=== PATIENT | female | born 1955 | race Two or more races ===

== ENCOUNTER 2024-08-24 17:26 | Inpatient (IN) | payer OTHER, MEDICAID ==
[~2024-08-24] VITALS: Ht 172.7 cm; Wt 67.5 kg
--- NOTE | 2024-08-24 17:34 | ED.PDOC ---
History of Present Illness HPI Comments 59 year old female brought in by EMS with a chief complaint of chronic seizure- like activity. Per EMS, patient has been experiencing seizure like activity and is anxious. Patient is anxious, crying and in distress, unable to obtain story from patient due to her anxiety. PMHx of HTN and anxiety. No other symptoms or modifying factors present at this time. 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 History Family History Family History: Reviewed,noncontributory to illness, No family hx of Cancer, No family hx of DM, No family hx of Heart breana, No family hx of HTN, No family hx ofKidney breana, No family hx of Liver breana, No family hx of Lung breana, No family hx of Stroke Social History Smoker: Non-Smoker Alcohol: Denies ETOH Use Drugs: Denies Drug Use Lives In: Home Psychiatric: reports: anxiety Unable to Obtain due to: Altered Mental Status Physical Exam General Appearance: Moderate Distress, Normal, Other (anxious, tearful ) HEENT: Normal ENT Inspection, Pharynx Normal, TMs Normal Neck: Full Range of Motion, Non-Tender, Normal, Normal Inspection Respiratory: Chest Non-Tender, Lungs Clear, No Accessory Muscle Use, No Respiratory Distress, Normal Breath Sounds Cardiovascular: No Edema, No JVD, No Murmur, No Gallop, Normal Peripheral Pulses, Regular Rate/Rhythm Breast Exam: Deferred Gastrointestinal: No Organomegaly, Non Tender, No Pulsatile Mass, Normal Bowel Sounds, Soft Genitalia: Deferred Pelvic: Deferred Rectal: Deferred Extremities: No calf tenderness, Normal capillary refill, Normal inspection, Normal range of motion, Non-tender, No pedal edema Musculoskeletal : Apperance: Normal Neurologic: Alert, tableau lead II-XII nml as Tested, No Motor Deficits, No Sensory Deficits, Other (anxious) Cerebellar Function: Normal Reflexes: Normal Skin: Dry, Normal Color, Warm Lymphatic: No Adenopathy Was a procedure done? Was a procedure done?: No Differential Dx Considerations may include: Anxiety, seizure X-Ray, Labs, Meds, VS Vital Signs Date Time Temp Pulse Resp B/P (MAP) Pulse Ox O2 Delivery O2 Flow Rate FiO2 08/24/24 21:19 92 16 159/81 100 100 08/24/24 21:01 159/81 08/24/24 20:40 92 16 159/81 (107) 92 100 08/24/24 19:49 79 33 100 Nasal Cannula* 4 36 08/24/24 19:47 98.9 79 33 158/103 (121) 100 98.9 08/24/24 18:12 99.9 92 24 192/118 (142) 97 08/24/24 17:26 77 Lab Test 08/24/24 18:01 Range/Units White Blood Count 4.4 4.4-10.8 10^3/uL Red Blood Count 4.19 4.0-5.20 10^6/uL Hemoglobin 14.3 12.2-16.2 g/dL Hematocrit 41.8 36.0-46.0 % Mean Corpuscular Volume 99.7 80.0-100.0 fL Mean Corpuscular Hemoglobin 34.1 H 28.0-32.0 pg Mean Corpuscular Hemoglobin Concent 34.2 32.0-36.0 g/dL Red Cell Distribution Width 13.0 11.8-14.3 % Platelet Count 168 140-450 10^3/uL Mean Platelet Volume 9.5 6.9-10.8 fL Neutrophils (%) (Auto) 56.4 37.0-80.0 % Lymphocytes (%) (Auto) 33.0 10.0-50.0 % Monocytes (%) (Auto) 8.7 0.0-12.0 % Eosinophils (%) (Auto) 1.4 0.0-7.0 % Basophils (%) (Auto) 0.5 0.0-2.0 % Neutrophils # (Auto) 2.5 1.6-8.6 10 ^3/uL Lymphocytes # (Auto) 1.4 0.4-5.4 10 ^3/uL Monocytes # (Auto) 0.4 0-1.3 10 ^3/uL Eosinophils # (Auto) 0.1 0-0.8 10 ^3/uL Basophils # (Auto) 0 0-0.2 10 ^3/uL Nucleated Red Blood Cells 0.0 % D-Dimer, Quantitative 0.74 H 0.0-0.49 mg/L FEU Sodium Level 145 136-145 mmol/L Potassium Level 3.8 3.5-5.1 mmol/L Chloride Level 111 H 98-107 mmol/L Carbon Dioxide Level 24 20-31 mmol/L Anion Gap 10 5-15 Blood Urea Nitrogen 10 9-23 mg/dL Creatinine 0.61 0.550-1.02 mg/dL Glomerular Filtration Rate Calc 96 >90 mL/min BUN/Creatinine Ratio 16.4 10.0-20.0 Serum Glucose 124 H 74-106 mg/dL Calcium Level 10.9 H 8.7-10.4 mg/dL Total Bilirubin 0.5 0.2-1.0 mg/dL Aspartate Amino Transferase (AST) 18 13-40 U/L Alanine Aminotransferase (ALT) 29 7-40 U/L Alkaline Phosphatase 98 46-116 U/L Total Protein 7.0 5.7-8.2 g/dL Albumin 4.6 3.2-4.8 g/dL Plasma/Serum Blood Alcohol 5.1 <10 mg/dL Current Medications Medications (Trade) Dose Ordered Sig/Jeanne Route Start Time Stop Time Status Last Admin Midazolam HCl (Versed Injection) 5 mg ONCE ONCE IV 08/24/24 18:45 08/24/24 18:46 DC 08/24/24 19:08 Propofol 100 ml @ 2.46 mls/hr Q24H IV 08/24/24 20:45 08/24/24 21:01 X-Ray, Labs, Meds, VS Comment This 59-year-old female was brought in secondary to seizure-like activity. However, the patient endorses feeling anxious with numbness tingling to her lips and fingers. I have managed to have the patient was a full questions with deep inspiration and relaxation techniques. She was sent home with the she prefers to speak Nigerien versus Mauritanian. However, shortly after I left the patient was bedside, she began becoming tremulous, tearful, saying please and calling out for what seems to be family members. Patient was given Haldol IM. Patient was signed out to the oncoming physician for final disposition Time of 1ST Reevaluation: 17:56 Reevaluation 1ST: Unchanged Patient Education/Counseling: Diagnosis, Treatment, Prognosis Family Education/Counseling: No Family Present Departure 1 Departure Time of Disposition: 21:46 (Patient with worsening altered mental status and intractable pain. Patient was becoming delirious. Patient was intubated central line placed emergently fluids fluids given the patient will be admitted for further workup.) Impression: Primary Impression: Acute metabolic encephalopathy Additional Impressions: Lower back pain Qualified Codes: M54.42 - Lumbago with sciatica, left side; M54.41 - Lumbago with sciatica, right side Generalized weakness Disposition: 09 ADMITTED INPATIENT Admit to: ICU Condition: Critical Critical Care Note Critical Care Time?: Yes Critical care comment: Acute metabolic encephalopathy Authorized and Performed by: Morales Scruggs MD Total critical care time: Approximately 39 minutes Due to a high probability of clinically significant, life threatening deterioration, the patient required my highest level of preparedness to intervene emergently and I personally spent this critical care time directly and personally managing the patient. This critical care time included obtaining a history; examining the patient; pulse oximetry; ordering and review of studies; arranging urgent treatment with development of a management plan; evaluation of patient's response to treatment; frequent reassessment; and, discussions with other providers. This critical care time was performed to assess and manage the high probability of imminent, life-threatening deterioration that could result in multi-organ failure. It was exclusive of separately billable procedures and treating other patients and teaching time. Please see my other sections and the rest of the note for further information on patient assessment and treatment. Stability Stability form required: No Heart Score Heart Score: Heart Score Response (Comments) Value History N/A 0 EKG N/A 0 Age N/A 0 Risk Factors N/A 0 Troponin N/A 0 Total 0 I personally scribed for ALEC HERRMANN MD ([email or web address]) on 08/24/24 at 17:34. Electronically submitted by Ruby Rivero ([email or web address]). ALEC HERRMANN MD Aug 24, 2024 17:34 MORALES SCRUGGS MD Aug 24, 2024 21:47
[2024-08-24] MEDS: HALOPERIDOL LACTATE 5 MG/ML INJ VIAL IM ONE (17:57)
[2024-08-24 18:46] LABS: Basophils # (auto) 0 10 ^3/uL (0-0.2); Basophils % (auto) 0.5 % (0.0-2.0); Eosinophils # (auto) 0.1 10 ^3/uL (0-0.8); Eosinophils % (auto) 1.4 % (0.0-7.0); Monocytes # (auto) 0.4 10 ^3/uL (0-1.3); Neutrophils # (auto) 2.5 10 ^3/uL (1.6-8.6); White Blood Cell 4.4 10^3/uL (4.4-10.8)
[2024-08-24 18:52] LABS: Alanine Aminotransferase 29 U/L (7-40); Albumin 4.6 g/dL (3.2-4.8); Alkaline Phosphatase 98 U/L (46-116); Anion Gap 10 (5-15); Aspartate Aminotransferase 18 U/L (13-40); BUN/Creatinine Ratio 16.4 (10.0-20.0); Bilirubin, Total 0.5 mg/dL (0.2-1.0); Blood Urea Nitrogen 10 mg/dL (9-23); Carbon Dioxide 24 mmol/L (20-31); Potassium 3.8 mmol/L (3.5-5.1); Sodium 145 mmol/L (136-145)
[2024-08-24 19:07] LABS: Calcium 10.9 mg/dL (8.7-10.4); Chloride 111 mmol/L (98-107); Glucose 124 mg/dL (74-106)
[2024-08-24] MEDS: MIDAZOLAM HCL 5 MG/ML-1ML VIAL IV ONE (19:08)
--- NOTE | 2024-08-24 19:17 | ECG ---
[facility] Test Date: 2024-08-24 Test Time: 17:20:53 Pat Name: TANIA SAMS Department: ED Room: Gender: F Roguer: BK : 1955 Requested By: ALEC HERRMANN Order Number: [id number] Reading MD: Measurements Intervals [place] Rate: 77 P: 1 WY: 143 QRS: -16 QRSD: 87 T: 30 QT: 381 QTc: 432 Interpretive Statements Sinus rhythm Borderline left axis deviation Please click the below link to view image of tracing.
[2024-08-24 19:31] LABS: Hematocrit 41.8 % (36.0-46.0); Hemoglobin 14.3 g/dL (12.2-16.2); Lymphocytes # (auto) 1.4 10 ^3/uL (0.4-5.4); Mean Corpuscular Hemoglobin 34.1 pg (28.0-32.0); Mean Corpuscular Hgb Conc. 34.2 g/dL (32.0-36.0); Mean Corpuscular Volume 99.7 fL (80.0-100.0); Monocytes % (auto) 8.7 % (0.0-12.0); Neutrophils % (auto) 56.4 % (37.0-80.0); Platelet Count (auto) 168 10^3/uL (140-450); Red Blood Cells 4.19 10^6/uL (4.0-5.20)
[2024-08-24 19:49] VITALS: PULSE 79; RESP 33; O2SAT 100
--- NOTE | 2024-08-24 20:04 | DVH ---
CHEST RADIOGRAPH Indication: ams Technique: Single frontal view of the chest was obtained Comparison: None FINDINGS: Lines and Tubes: None Lungs: No focal consolidation. Pleura: No effusion. No pneumothorax. Cardiomediastinal contours: Unremarkable Bones: No acute osseous abnormality. IMPRESSION: No acute cardiopulmonary disease.
[2024-08-24] MEDS: ETOMIDATE (2MG/ML) 20ML VIAL IV ONE (20:34)
[2024-08-24] MEDS: ROCURONIUM 10MG/ML 10ML VIAL IV ONE (20:35)
[2024-08-24 20:40] VITALS: BP 159/81; PULSE 92; RESP 16; O2SAT 92
[2024-08-24] MEDS: PROPOFOL 100 ML IV ONE (21:01)
[2024-08-24] MEDS: PROPOFOL 100 ML IV SCH (21:01)
[2024-08-24 21:19] VITALS: BP 159/81; PULSE 92; RESP 16; O2SAT 100
--- NOTE | 2024-08-24 21:55 | DVH ---
CHEST RADIOGRAPH Indication: CENTRAL LINE PLACEMENT/ OGT PLACEMENT Technique: Single frontal view of the chest was obtained Comparison: XY CHEST PORTABLE on DOS: 08/24/24 FINDINGS: Lines and Tubes: Enteric tube is in satisfactory position. Left IJ approach central venous catheter t erminating of the midline lower thorax. Endotracheal tube terminates about 1.3 cm above the adonis. Lungs: Interval development of complete opacification of the left hemithorax with mediastinal shift t o the left. Slight image rotation to the right. No pneumothorax. Cardiomediastinal contours: Unremarkable Bones: No acute osseous abnormality. IMPRESSION: Left IJ approach central venous catheter terminates over the lower midline thorax with the heart is n ot definitely visualized due to mediastinal shift to the left and complete opacification of the left hemithorax. Endotracheal tube terminates about 1.3 cm above the adonis. Consider pulling back about 1-2 cm for mo re optimal positioning. Enteric tube is in satisfactory position. Interval development of complete opacification of the left hemithorax with mediastinal shift to the l eft which may be from atelectasis with underlying pleural effusion not completely excluded.
--- NOTE | 2024-08-24 22:09 | DVHNC2 ---
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) Indication: Hypotension, Volume resuscitation, Inability to obtain IV Room prepared for procedure: Yes Dist[employer] Miller Helper performed hand hygien: Yes Maximal sterile barrier precau: Mask/Eye shield, Sterile gown, Cap, Sterlie gloves, Large sterlie drape Skin Preparation: Chlorhexidine gluconate Skin preparation completely dr: Yes Insertion site: Left, Internal jugular, Line secured Central line catheter type: Xry-gazeptab-rmp dialysis Number of lumens: 3 Central line exchanged over a: No Antiseptic ointment applied to: Yes Post Assessment: Chest X-Ray Informed consent obtained: Yes Risks/benefits/alt described: Yes Date of Service: Aug 24, 2024 Billing Provider: MORALES WAGNER MD Common Visit Codes: PROCEDURE ONLY Procedure Codes: 99451-URRCVN NON-TUNNEL CV CATH MIROSLAVA CHRISTENSEN RESIDENT Aug 24, 2024 22:08
--- NOTE | 2024-08-24 22:10 | DVHNC2 ---
Intubation Indication: Respiratory Insufficiency, Altered Mental Status, Airway Protection Prep: Preoxygenation Pretreated with: Analgesia, Sedation Medicated with: Other (Rocuronium and ethomodate) Intubation Approach: Orotracheal Intubation size: cm (7.5) Informed consent obtained: Yes Risks/benefits/alt described: Yes UTO Consent Intubated with GlideScope under supervision of Dr. Scruggs Date of Service: Aug 24, 2024 Billing Provider: MORALES SCRUGGS MD Common Visit Codes: PROCEDURE ONLY Procedure Codes: [id number] MIROSLAVA CHRISTENSEN RESIDENT Aug 24, 2024 22:10
[2024-08-24 22:15] VITALS: BP 144/118; PULSE 77; RESP 16; O2SAT 93
[2024-08-24 22:38] LABS: Base Excess 0.9 mmol/L (-2.0-3.0)
[2024-08-24] MEDS: fentaNYL Drip 2500mCg/250mlNS 250 ML IV SCH (23:05)
[2024-08-24] MEDS ORDERED: MORPHINE SULFATE INJ 2 MG/ml SYRG IV PRN (23:30)
[2024-08-24] MEDS ORDERED: NITROGLYCERIN 0.4 MG SL TAB SL PRN (23:30)
--- NOTE | 2024-08-24 23:30 | DVHHPRES ---
History of Present Illness Resident Creating Document: [facility] History of Present Illness This is a 69-year-old female with past medical history of hypertension, anxiety and seizure-like activity since 1 year, brought to the hospital due to altered level of mental status. per patient's daughter, the patient has episodes of seizure-like activity during which she become stiff and has some jerky limb movement but the patient does not lose consciousness. The attacks come in spells, occurring over a span of several hours, each spell last a few minutes with brief interval between episodes. During this interval the patient remained oriented, no postictal like symptoms (including confusion), the total duration of these spells were approximately 2-3 hours, which recently has increased and the patient became more altered since 2 days. Per patient's daughter, patient also had visual hallucination and been bed-bound since 2 days. The patient has been followed by the PCP, but still has not been evaluated by neurologist, has an appointment on October with a neurologist. Upon arrival to the ED, due to altered level of mental status and low SaO2, the patient was sedated and intubated. Ten PMHx: hypertension, anxiety PSHx: Family history: Not significant Social history: Patient lives with the daughter at home, denies smoking, drink occasionally, denies any other drug use. Home medication: Baclofen and Valium as needed Allergic history: No known allergy Review of Systems Review of Systems Patient seen and examined on the bedside, patient is sedated and on mechanical ventilation, review of systems could not obtain. Allergies: Coded Allergies: NO KNOWN ALLERGIES (Unverified , 08/24/24) Medications Current Medications Medications Dose Ordered Sig/Jeanne Route Start Time Stop Time Status Last Admin Dose Admin Propofol 100 ml @ 2.46 mls/hr Q24H IV 08/24/24 20:45 08/24/24 21:01 2.46 MLS/HR Fentanyl Citrate 250 ml @ 2.5 mls/hr Q24H IV 08/24/24 23:00 08/24/24 23:05 2.5 MLS/HR Exam Vital Signs Vital Signs Date Time Temp Pulse Resp B/P (MAP) Pulse Ox O2 Delivery O2 Flow Rate FiO2 08/24/24 23:05 172/98 08/24/24 22:15 77 16 93 100 08/24/24 19:49 Nasal Cannula* 4 08/24/24 19:47 98.9 98.9 Exam General: RASS -3, afebrile, mucosae are moist Cardiovascular: Normal S1 and S2. No murmurs, gallops or rubs Respiratory: Mechanically assisted ventilation, equal bilateral airway entree. Bilateral Harsh breath sounds Abdomen: Soft, nontender, no organomegaly, normal bowel sounds MSK/skin: Mobilization of limbs cannot be evaluated. Skin is dry and warm. Neurological: Orientation cannot be assessed. No apparent motor no sensitive deficits. Pupils are isocoric and reactive Labs/Xrays Labs Test 08/24/24 22:00 08/24/24 18:01 Range/Units Blood Gas Specimen Type Arterial Blood Gas Sample Site Right radial Blood Gas Patient Temperature 37.0 Arterial Blood Date Drawn [id number] Arterial Blood pH 7.478 H 7.350-7.450 Arterial Blood Partial Pressure CO2 32.7 32.0-45.0 mmHg Arterial Blood Partial Pressure O2 49.3 *L 83.0-108.0 mmHg Arterial Blood HCO3 23.7 21.0-28.0 mmol/L Arterial Blood Oxygen Saturation 86.2 L 94.0-98.0 % Arterial Blood Base Excess 0.9 -2.0-3.0 mmol/L Arterial Blood Oxyhemoglobin 85.1 L 94.0-98.0 % Arterial Blood Carboxyhemoglobin 0.7 0.5-1.5 % Arterial Blood Methemoglobin 0.6 0.0-1.5 % Andrea Test Modified Blood Gas Total Hemoglobin 14.40 12.0-16.0 g/dL Blood Gas Set Respiration Rate 16.0 Blood Gas Modality Vent - ac FiO2 % 100.0 Blood Gas Tidal Volume 500.0 Blood Gas PEEP or CPAP 5.0 Blood Gas Critical Value Read Back Yes Blood Gas Notified Whom [place] md Blood Gas Notified Time [id number] Blood Gas Notified By Rochelle nicole rrt White Blood Count 4.4 4.4-10.8 10^3/uL Red Blood Count 4.19 4.0-5.20 10^6/uL Hemoglobin 14.3 12.2-16.2 g/dL Hematocrit 41.8 36.0-46.0 % Mean Corpuscular Volume 99.7 80.0-100.0 fL Mean Corpuscular Hemoglobin 34.1 H 28.0-32.0 pg Mean Corpuscular Hemoglobin Concent 34.2 32.0-36.0 g/dL Red Cell Distribution Width 13.0 11.8-14.3 % Platelet Count 168 140-450 10^3/uL Mean Platelet Volume 9.5 6.9-10.8 fL Neutrophils (%) (Auto) 56.4 37.0-80.0 % Lymphocytes (%) (Auto) 33.0 10.0-50.0 % Monocytes (%) (Auto) 8.7 0.0-12.0 % Eosinophils (%) (Auto) 1.4 0.0-7.0 % Basophils (%) (Auto) 0.5 0.0-2.0 % Neutrophils # (Auto) 2.5 1.6-8.6 10 ^3/uL Lymphocytes # (Auto) 1.4 0.4-5.4 10 ^3/uL Monocytes # (Auto) 0.4 0-1.3 10 ^3/uL Eosinophils # (Auto) 0.1 0-0.8 10 ^3/uL Basophils # (Auto) 0 0-0.2 10 ^3/uL Nucleated Red Blood Cells 0.0 % D-Dimer, Quantitative 0.74 H 0.0-0.49 mg/L FEU Sodium Level 145 136-145 mmol/L Potassium Level 3.8 3.5-5.1 mmol/L Chloride Level 111 H 98-107 mmol/L Carbon Dioxide Level 24 20-31 mmol/L Anion Gap 10 5-15 Blood Urea Nitrogen 10 9-23 mg/dL Creatinine 0.61 0.550-1.02 mg/dL Glomerular Filtration Rate Calc 96 >90 mL/min BUN/Creatinine Ratio 16.4 10.0-20.0 Serum Glucose 124 H 74-106 mg/dL Calcium Level 10.9 H 8.7-10.4 mg/dL Total Bilirubin 0.5 0.2-1.0 mg/dL Aspartate Amino Transferase (AST) 18 13-40 U/L Alanine Aminotransferase (ALT) 29 7-40 U/L Alkaline Phosphatase 98 46-116 U/L Total Protein 7.0 5.7-8.2 g/dL Albumin 4.6 3.2-4.8 g/dL Plasma/Serum Blood Alcohol 5.1 <10 mg/dL Assessment/Plan Assessment/Plan NEURO: History of seizure-like activity, since 1 year Acute metabolic encephalopathy, likely due to sepsis/hypertensive emergency Patient is sedated, RASS score -[address] scan does not show any acute intracranial abnormalities LP CARDIOVASCULAR: Hypertensive emergency, likely leading to encephalopathy Amlodipine 5 mg Hydralazine p.r.n. PULMONARY: Sepsis, likely due to aspiration pneumonia Pneumonia, likely due to gram+ gram- bacteria/ viral/aspiration Atelectasis Possible pneumonia likely due to Gram-positive Gram-negative bacteria/viral Patient is on mechanical ventilation with a setting of VT 500, RR 16, peep 5, and FiO2 40% check COVID, flu, and MRSA nares Empiric antibiotic of doxycycline and Unasyn Breathing treatment IV fluid GASTROINTESTINAL: Mild hepatic steatosis, CT finding Pancolonic diverticulosis, CT finding GENITOURINARY: ENDOCRINE: Check TSH and ammonia METABOLIC: Hyperchloremia, monitoring Asymptomatic hypercalcemia, likely due to dehydration Hypokalemia, repleted HEME: D-dimer is raised at 0.74 Doppler ultrasound of lower limb INFECTIOUS DISEASE: Sepsis, likely due to aspiration pneumonia Blood culture DIET: NPO DVT prophylax: Lovenox Code status: Goal of care discussed with the patient's daughter and son-in-law, modified DNR (okay with intubation, no chest compression or electrical cardioversion) LINES/DRAINS/ACCESS: ETT: Intubated on 08/24/2024 IV access: Left internal jugular CVC, placed on 08/22/24 Drips: Propofol Versed Fentanyl Rosario catheter: Placed on 08/22/2024 DISPOSITION: ICU status Patient's status discussed with patient's daughter and son-in-law at the bedside. Critical care time spent more than 83 minutes, including patient care, chart review, and updating the family. Excluding any procedures. Case discussed with Dr. Fernandez Plan discussed with: Patient, Daughter, Other (RN) My Orders Orders - JEANIE PAK RESDIABRAHAM Procedure Category Date Status Time Admit ADMIT 08/24/24 Verified 23:25 Nitroglycerin PHA 08/24/24 Verified Sublingual (Ntrostat 23:30 Morphine Sulfate PHA 08/24/24 Verified Injection 23:30 Oxygen By Nasal RT 08/24/24 Verified Cannula 23:25 Stat Ekg For Chest MANE 08/24/24 Verified Pain 23:25 Notify Md Of Changes [facility] 08/24/24 Verified From Base 23:25 Production Grip For [facility] 08/24/24 Verified 24 Hours 23:25 Emergency Dysrhythmia [facility] 08/24/24 Verified Protocol 23:25 Rhythm Strips Once [facility] 08/24/24 Verified Every Shift 23:25 Date of Service: Aug 24, 2024 Billing Provider: GHULAM NELSON MD Common Visit Codes: [id number] INP/OBS CARE (HIGH) JEANIE PAK RESDIENT Aug 24, 2024 23:30 GHULAM NELSON MD Aug 29, 2024 16:05
[2024-08-24 23:45] LABS: Urine Bacteria None Seen /hpf (None Seen)
[2024-08-24 23:50] VITALS: BP 147/88; PULSE 74; RESP 16; O2SAT 96
[2024-08-25] VITALS (13 sets, daily range): BP systolic 97–150; BP diastolic 43–90; PULSE 63–122; RESP 16–33; O2SAT 95–100
[2024-08-25] MEDS: ROCURONIUM 10MG/ML 10ML VIAL IV ONE
[2024-08-25] MEDS: ETOMIDATE (2MG/ML) 20ML VIAL IV ONE
[2024-08-25] MEDS: MIDAZOLAM DRIP 50 mg/50mL 50 ML IV SCH (00:15)
[2024-08-25 00:24] LABS: Urine Blood Negative /uL (Negative); Urine Clarity Turbid (Clear); Urine Color Yellow (Yellow); Urine Hyaline Cast FEW /lpf (0 - 2); Urine Mucus FEW (None Seen); Urine Protein, UAD TRACE (Negative); Urine Specific Gravity 1.023 (1.001-1.035); Urine Squamous Epithelial Cell FEW /hpf (<5); Urine Urobilinogen Normal (Negative); Urine WBC 1 /HPF (0-5); Urine pH 5.5 (5.0-9.0)
[2024-08-25 00:29] LABS: Amphetamine Screen, Urine Neg (NEGATIVE); Barbiturate Scree,Urine Neg (NEGATIVE); Benzodiazephine Screen, Urine Pos (NEGATIVE); Cannabinoid Screen, Urine Neg (NEGATIVE); Cocaine Screen, Urine Neg (NEGATIVE); Opiate Scree,Urine Neg (NEGATIVE); Phencyclidine Screen, Urine Neg (NEGATIVE)
--- NOTE | 2024-08-25 00:39 | DVH ---
EXAM: XY CHEST XRAY 1 VIEW CLINICAL HISTORY: ETT PLACEMENT CONFIRMATION / OGT PLACEMENT CONFIRMATION TECHNIQUE: Single AP view of the chest WID: COMPARISON: XY CHEST XRAY 1 VIEW on DOS: 08/24/24, XY CHEST PORTABLE on DOS: 08/24/24 FINDINGS: Lines and tubes: Endotracheal tube appears just at the adonis possibly coursing towards the right nas nstem bronchus. Left IJ central venous catheter projects over the low SVC. Gastric tube descends hipolito eath the level of the diaphragm and tip not visualized in field of view. Chest: The heart size and pulmonary vasculature is within normal limits. Diffuse opacification of the left hemithorax. Right lung is clear. No pneumothorax The osseous structures are grossly intact. IMPRESSION: 1. Various indwelling medical devices in place. Endotracheal tube appears just at the adonis partial ly coursing towards the right mainstem bronchus. 2. Diffuse opacification of the left hemithorax which could reflect complete left lung atelectasis or pleural effusion
[2024-08-25 00:45] LABS: Base Excess 0.5 mmol/L (-2.0-3.0)
[2024-08-25] MEDS: MIDAZOLAM DRIP 50 mg/50mL 50 ML IV ONE (00:46)
--- NOTE | 2024-08-25 01:06 | DVH ---
EXAM: XY CHEST XRAY 1 VIEW CLINICAL HISTORY: ETT PLACEMENT/CONFIRMATION TECHNIQUE: Single view of the chest WID: COMPARISON: XY CHEST XRAY 1 VIEW on DOS: 08/24/24, XY CHEST XRAY 1 VIEW on DOS: 08/24/24, XY CHEST PORT ABLE on DOS: 08/24/24 FINDINGS: Lines and tubes: Endotracheal tube is in place which again is seen coursing towards the right mainste m bronchus. Left IJ central venous catheter projects over the upper right atrium. Gastric tube desc ends beneath the level of the diaphragm, tip not visualized in field of view. Chest: The heart size and pulmonary vasculature is within normal limits. Improvement in opacification of the left hemithorax with airspace consolidation in the left lung apex and left lung base. no pneumothorax. The osseous structures are grossly intact. IMPRESSION: 1. Endotracheal tube in place which again is coursing towards the right mainstem bronchus. Retraction of the tubing at least 1.5 cm suggested. 2. Improvement in opacification of the left hemithorax likely improvement in left lung atelectasis.
[2024-08-25] MEDS: IOHEXOL 300 MG/ML 100ML BOTTLE IJ ONE (01:59)
--- NOTE | 2024-08-25 02:03 | DVH ---
CLINICAL HISTORY: ams TECHNIQUE: Helical imaging carried out from skull base to vertex without intravenous contrast. This e xam was performed according to our departmental dose optimization program. Up-to-date CT equipment an d radiation dose reduction techniques are utilized as appropriate. COMPARISON: None FINDINGS: The ventricles and subarachnoid spaces are normal in size and configuration. There is no midline pedro ft or mass effect. The novak white matter interfaces are maintained. The basal cisterns are patent. Th ere is no evidence of acute intracranial hemorrhage or extra-axial fluid collection. The mastoid air cells are well-aerated. There are fluid levels in the bilateral maxillary and sphenoid sinuses and m ild paranasal sinus mucosal thickening. IMPRESSION: No acute intracranial abnormality.
--- NOTE | 2024-08-25 02:13 | DVH ---
CLINICAL HISTORY: severe chest and abdomen pain TECHNIQUE: CT of the chest, abdomen and pelvis was performed with IV contrast . This exam was perform ed according to our departmental dose optimization program. Up-to-date CT equipment and radiation dos e reduction techniques are utilized as appropriate. COMPARISON: None FINDINGS: CHEST FINDINGS: Lower Neck: A few tiny right thyroid nodules Axilla, Mediastinum and Joya: There is a gastric tube coursing in the esophagus. There is mediastinal shift to the left tawnya thorax. There is no thoracic lymphadenopathy. Left IJ central venous catheter with the tip terminating in the upper IVC. Heart and Great Vessels: Upper limits of normal-sized heart with trace pericardial effusion. The tho racic aorta is patent and normal caliber containing mild mixed atherosclerotic plaque. Central pulmon teresa arteries are patent. Mild coronary artery calcifications Airway, Lungs and Pleura: Endotracheal tube courses into the right mainstem bronchus. There is comple te consolidation and atelectasis of the left lower lobe. Additional linear atelectasis or scarring in both lungs. There is no pneumothorax. Chest Wall and Osseous Structures: Multilevel thoracic spondylosis. No destructive osseous lesion. Abdomen and Pelvis Findings: Liver and Biliary system: There is mild hepatic steatosis. Normal-sized liver. A few well-defined hyp odensities in both lobes of the liver may reflect cysts. Major portal veins are patent. The gallbladd er is normal caliber. There is no biliary ductal dilatation. Spleen: Unremarkable. Adrenal Glands and Kidneys: Normal adrenal glands. 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 The re is no hydronephrosis or nephrolithiasis. There is a hypodense lesion in the lower pole right kidne y likely a cyst. Pancreas and Retroperitoneum: Mildly atrophic pancreas. No retroperitoneal lymphadenopathy. Aorta and Major Vessels: Aortoiliac vessels are patent and normal caliber containing [id number] mixed atherosclerotic plaque. Bowel, Mesentery and Peritoneal space: The small and large bowel loops are normal in caliber there is pancolonic diverticulosis which is moderate distally. Normal appendix. A gastric tube terminates in the distal body of the stomach. No free air or fluid collection. Pelvis: Rosario catheter terminates in the urinary bladder. The uterus and ovaries are present. There are tiny postmenopausal cysts in the left ovary. There is no pelvic lymphadenopathy. Abdominal wall and Osseous Structures: Mild lumbar spondylosis. No destructive osseous lesion. IMPRESSION: 1. Complete consolidation and atelectasis of the left lower lobe. Superimposed pneumonia could contr ibute to this appearance. 2. Endotracheal tube courses into the right mainstem bronchus, and retraction of the tubing again rec ommended. 3. Pancolonic diverticulosis, moderate distally. 4. Mild hepatic steatosis. 5. Left IJ central venous catheter terminates in the upper IVC. 6. Gastric tube in place terminating in the distal body of the stomach.
[2024-08-25] MEDS: SODIUM CHLORIDE 0.9% 500 ML IV ONE (03:14)
[2024-08-25] MEDS: SODIUM CHLORIDE 0.9% 1,000 ML IV ONE ×2 (03:30→17:23)
[2024-08-25] MEDS: DOXYCYCLINE 100MG/100ML 100 ML IV SCH (03:38)
[2024-08-25 03:51] LABS: Basophils # (auto) 0 10 ^3/uL (0-0.2); Basophils % (auto) 0.3 % (0.0-2.0); Eosinophils # (auto) 0 10 ^3/uL (0-0.8); Eosinophils % (auto) 0.5 % (0.0-7.0); Hematocrit 35.1 % (36.0-46.0); Hemoglobin 12.4 g/dL (12.2-16.2); Lymphocytes # (auto) 1.4 10 ^3/uL (0.4-5.4); Lymphocytes % (auto) 18.1 % (10.0-50.0); Mean Corpuscular Hgb Conc. 35.4 g/dL (32.0-36.0); Mean Corpuscular Volume 98.8 fL (80.0-100.0); Monocytes # (auto) 0.6 10 ^3/uL (0-1.3); Monocytes % (auto) 7.6 % (0.0-12.0); Neutrophils # (auto) 5.7 10 ^3/uL (1.6-8.6); Neutrophils % (auto) 73.5 % (37.0-80.0); Nucleated Red Blood Cells % 0.1 %; Platelet Count (auto) 147 10^3/uL (140-450); Red Blood Cells 3.56 10^6/uL (4.0-5.20); White Blood Cell 7.7 10^3/uL (4.4-10.8)
[2024-08-25 03:56] LABS: Alanine Aminotransferase 24 U/L (7-40); Albumin 3.8 g/dL (3.2-4.8); Alkaline Phosphatase 80 U/L (46-116); Anion Gap 9 (5-15); Aspartate Aminotransferase 20 U/L (13-40); BUN/Creatinine Ratio 17.5 (10.0-20.0); Blood Urea Nitrogen 10 mg/dL (9-23); Calcium 10.3 mg/dL (8.7-10.4); Carbon Dioxide 23 mmol/L (20-31); Glucose 102 mg/dL (74-106); Sodium 143 mmol/L (136-145)
[2024-08-25 03:57] LABS: Bilirubin, Total 0.5 mg/dL (0.2-1.0); Chloride 111 mmol/L (98-107); Total Protein 5.7 g/dL (5.7-8.2)
[2024-08-25 03:58] LABS: INR 0.99 (0.9-1.15); Prothrombin Time 10.5 sec (9.3-11.8)
[2024-08-25] MEDS: ALBUTEROL SULF 2.5 MG/0.5ML(0.5%) NEB SOLN NEB SCH (06:00)
[2024-08-25] MEDS: IPRATROPIUM BROM 0.5 MG/2.5ML INH SOL NEB SCH (06:00)
[2024-08-25] MEDS: AMPICILLIN & SULBACTAM SODIUM 3 GM in SODIUM CHL 0.9% 100 ML IV SCH (07:46)
[2024-08-25 08:15] LABS: Base Excess -7.7 mmol/L (-2.0-3.0)
--- NOTE | 2024-08-25 08:33 | DVH ---
Bilateral lower extremity venous duplex Clinical History: Raised D-dimer Comparison: None Technique: Duplex Doppler evaluation of the deep venous systems of both lower extremities from the common femora l veins to the popliteal veins including color Doppler and spectral/pulsed waveform analysis was perf ormed. Findings: RIGHT SIDE: The common femoral vein demonstrates appropriate compressibility and waveform variability. There is compressibility/patency of the great saphenous vein at the proximal thigh. The femoral vein demonstrates appropriate compressibility and waveform variability. The deep femoral vein demonstrates appropriate compressibility and waveform variability. The popliteal vein demonstrates appropriate compressibility and waveform variability. There is normal compressibility at the tibioperoneal trunk. LEFT SIDE: The common femoral vein demonstrates appropriate compressibility and waveform variability. There is compressibility/patency of the great saphenous vein at the proximal thigh. The femoral vein demonstrates appropriate compressibility and waveform variability. The deep femoral vein demonstrates appropriate compressibility and waveform variability. The popliteal vein demonstrates appropriate compressibility and waveform variability. There is normal compressibility at the tibioperoneal trunk. Impression: No right or left femoropopliteal venous thrombosis.
[2024-08-25] MEDS: POTASSIUM CHL 20MEQ/100ML 100 ML IV SCH (08:58)
--- NOTE | 2024-08-25 09:04 | DVH ---
EXAM: XR Chest, 1 View CLINICAL INDICATION: Pneumonia TECHNIQUE: Frontal view of the chest. COMPARISON: XY CHEST XRAY 1 VIEW on DOS: 08/25/24, XY CHEST XRAY 1 VIEW on DOS: 08/24/24, XY CHEST XRA Y 1 VIEW on DOS: 08/24/24, XY CHEST PORTABLE on DOS: 08/24/24 FINDINGS: LUNGS AND PLEURAL SPACES: Left basilar atelectasis or pneumonia. HEART: Cardiomegaly with mild congestion. MEDIASTINUM: Unremarkable. Normal mediastinal contour. BONES/JOINTS: Unremarkable. No acute fracture. TUBES, LINES AND DEVICES: The endotracheal tube (ETT) is in satisfactory position. Enteric tube ti p in the stomach. OTHER FINDINGS: . . IMPRESSION: 1. Left basilar atelectasis or pneumonia. 2. Cardiomegaly with mild congestion.
[2024-08-25 11:04] LABS: Lactic Acid w/Reflex 7.5 mmol/L (0.4-2.0)
[2024-08-25] MEDS ORDERED: VANCOMYCIN PER PHARMACY 0 MG IV SCH (13:45)
[2024-08-25] MEDS ORDERED: CEFEPIME 2GM/50ML NS 50 ML IV SCH (14:00)
[2024-08-25] MEDS ORDERED: AMPICILLIN & SULBACTAM SODIUM 3 GM in SODIUM CHL 0.9% 100 ML IV SCH (14:00)
[2024-08-25] MEDS: CEFEPIME 2GM/50ML NS 50 ML IV SCH (14:17)
[2024-08-25] MEDS: VANCOMYCIN 1GM/250ML KIT 250 ML IV SCH (15:03)
--- NOTE | 2024-08-25 17:46 | DVHPN2 ---
Subjective 08/25-no significant updates today, patient is sedated. Propofol weaned off. Per patient's family, the patient never had seizures and episodes of spasms/diffuse body spasms, patient does not lose consciousness. Patient is on baclofen and Valium for chronic diffuse body muscle spasms. She has been recently diagnosed as stiff person syndrome. Lactic is high, other workup is all negative. We will need neurology to follow up on this case. Reviewed: H&P Changes from previous H/P or p: No Changes General: Per HPI Objective Vitals Vital Signs Date Time Temp Pulse Resp B/P (MAP) Pulse Ox O2 Delivery O2 Flow Rate FiO2 08/25/24 17:00 93 16 102/46 (64) 98 08/25/24 16:47 30 08/25/24 08:45 98.2 98.2 08/25/24 08:33 Nasal Cannula* 4 Intake/Output Intake and Output 08/25/24 07:00 Intake Total 1007.5 ml Balance 1007.5 ml Intake IV Total 1007.5 ml Exam And Versed, and now, Levophed, Vent settings per RT Lungs clear Abdomen is soft nontender bowel sounds hypoactive Cords with telephone number Legs with trace pedal edema. Medications Current Medications Medications Dose Ordered Sig/Jeanne Route Start Time Stop Time Status Last Admin Dose Admin Propofol 100 ml @ 2.46 mls/hr Q24H IV 08/24/24 20:45 08/24/24 21:01 2.46 MLS/HR Fentanyl Citrate 250 ml @ 2.5 mls/hr Q24H IV 08/24/24 23:00 08/24/24 23:05 2.5 MLS/HR Nitroglycerin 0.4 mg Q5MINP PRN SL 08/24/24 23:30 Morphine Sulfate 2 mg Q30M PRN IV 08/24/24 23:30 Midazolam HCl 50 ml @ 1 mls/hr Q24H IV 08/25/24 00:15 08/25/24 00:15 2 MLS/HR Ipratropium [place] 0.5 mg Q6HR NEB 08/25/24 06:00 08/25/24 12:04 0.5 MG Albuterol 2.5 mg Q6HR NEB 08/25/24 06:00 08/25/24 12:04 2.5 MG Vancomycin HCl 0 ml @ 0 mls/hr UD IV 08/25/24 13:45 Cefepime HCl 50 ml @ 12.5 mls/hr Q12H IV 08/25/24 14:00 08/25/24 14:17 12.5 MLS/HR Vancomycin HCl 100 ml @ 100 mls/hr Q12H IV 08/25/24 22:00 Laboratory Results Laboratory Tests 08/25/24 03:20 Chemistry Test 08/24/24 18:01 08/25/24 03:20 08/25/24 08:35 Albumin 4.6 g/dL (3.2-4.8) 3.8 g/dL (3.2-4.8) Calcium Level 10.9 mg/dL (8.7-10.4) H 10.3 mg/dL (8.7-10.4) Total Protein 7.0 g/dL (5.7-8.2) 5.7 g/dL (5.7-8.2) Magnesium Level 1.8 mg/dL (1.6-2.6) Coagulation Test 08/24/24 18:01 08/25/24 03:20 D-Dimer, Quantitative 0.74 mg/L FEU (0.0-0.49) H Prothrombin Time 10.5 sec (9.3-11.8) Prothrombin Time INR 0.99 (0.9-1.15) LFT Test 08/24/24 18:01 08/25/24 03:20 Alanine Aminotransferase (ALT) 29 U/L (7-40) 24 U/L (7-40) Alkaline Phosphatase 98 U/L (46-116) 80 U/L (46-116) Aspartate Amino Transferase (AST) 18 U/L (13-40) 20 U/L (13-40) Total Bilirubin 0.5 mg/dL (0.2-1.0) 0.5 mg/dL (0.2-1.0) HgA1c, TSH Test 08/25/24 03:20 Thyroid Stimulating Hormone (TSH) 1.83 uIU/mL (0.55-4.78) Urinalysis Test 08/24/24 23:44 Urine Color Yellow (Yellow) Urine Clarity Turbid (Clear) H Urine pH 5.5 (5.0-9.0) Urine Specific [place] 1.023 (1.001-1.035) Urine Protein Trace (Negative) H Urine Ketones Negative (Negative) Urine Blood Negative /uL (Negative) Urine Nitrite Negative (Negative) Urine Bilirubin Negative (Negative) Urine Urobilinogen Normal mg/dL (Negative) Urine Leukocyte Esterase Negative /uL (Negative) Urine RBC 1 /hpf (0 - 4) Urine Microscopic WBC 1 /HPF (0-5) Urine Squamous Epithelial Cells Few /hpf (<5) Urine Bacteria None seen /hpf (None Seen) Urine Hyaline Casts Few /lpf (0 - 2) Urine Mucus Few (None Seen) Urine Glucose Normal mg/dL (Normal) Blood Gas Results Test 08/24/24 22:00 08/25/24 00:38 08/25/24 08:06 Arterial Blood pH 7.478 (7.350-7.450) 7.541 (7.350-7.450) 7.322 (7.350-7.450) FiO2 % 100.0 100.0 30.0 Microbiology Microbiology Date/Time Source Procedure Growth Status 08/24/24 20:40 Sputum Gram Stain - Final Resulted 08/24/24 20:40 Sputum Respiratory Culture - Preliminary Resulted Labs and/or images reviewed: Labs reviewed by me, Image(s) reviewed by me Assessment/Plan Assessment/Plan 08/25-no significant updates today, patient is sedated. Propofol weaned off. Per patient's family, the patient never had seizures and episodes of spasms/diffuse body spasms, patient does not lose consciousness. Patient is on baclofen and Valium for chronic diffuse body muscle spasms. She has been recently diagnosed as stiff person syndrome. Lactic is high, other workup is all negative. We will need neurology to follow up on this case. We will give another 1 L over 4 hours and continue antibiotics. We will repeat lactic and consult Neurology NEURO: History of seizure-like activity, since 1 year Acute metabolic encephalopathy, likely due to sepsis/hypertensive emergency ? Stiff person syndrome Patient is sedated, RASS score -[address] scan does not show any acute intracranial abnormalities All lab workup has been negative thus far. -neurology consulted - vanc/ceftriaxone - IVF CARDIOVASCULAR: Hypertensive emergency, likely leading to encephalopathy Amlodipine 5 mg Hydralazine p.r.n. SBP > 170 PULMONARY: Sepsis, likely due to aspiration pneumonia Pneumonia, likely due to gram+ gram- bacteria/ viral/aspiration Atelectasis Possible pneumonia likely due to Gram-positive Gram-negative bacteria/viral Patient is on mechanical ventilation with a setting of VT 500, RR 16, peep 5, and FiO2 40% COVID, flu, negative MRSA nares Empiric antibiotic of vanc/cefepime (prior doxycycline and Unasyn) Breathing treatment p.r.n. GASTROINTESTINAL: Mild hepatic steatosis, CT finding she Pancolonic diverticulosis, CT finding GENITOURINARY: ENDOCRINE: TSH and ammonia normal Renal/METABOLIC: Hyperchloremia, monitoring Asymptomatic hypercalcemia, likely due to dehydration Hypokalemia, repleted Lactic acidosis lactic 7.5 then 7.1 knees regulated HEME: D-dimer is raised at 0.74 Doppler ultrasound of lower limb negative/normal INFECTIOUS DISEASE: Sepsis, likely due to aspiration pneumonia Blood culture pending DIET: enternal Clinimix DVT prophylax: Lovenox Code status: Goal of care discussed with the patient's daughter and son-in-law, modified DNR (okay with intubation, no chest compression or electrical cardioversion) LINES/DRAINS/ACCESS: ETT: Intubated on 08/24/2024 IV access: Left internal jugular CVC, placed on 08/22/24 Drips: Propofol stopped Versed Fentanyl Rosario catheter: Placed on 08/22/2024 DISPOSITION: ICU status Patient's status discussed with patient's daughter and son-in-law at the bedside. Plan discussed with: Patient My Orders Orders - GHULAM NELSON MD Procedure Category Date Status Time Vancomycin Per PHA 08/25/24 In Process Pharmacy 13:45 Cefepime 2gm/50ml Ns PHA 08/25/24 In Process (Maxipime 2gm/50ml) 14:00 Communication Order ORDERS 08/25/24 Transmitted 14:17 Vancomycin 750mg Kit PHA 08/25/24 In Process (Vancomycin Hcl) 22:00 Vancomycin,Trough LAB 08/27/24 Verified 09:00 Creatinine LAB 08/26/24 Verified 05:00 Vancomycin Per MANE 08/27/24 In Process Pharmacy Protoc 10:00 Sodium Chloride 0.9% PHA 08/25/24 In Process 17:15 Date of Service: Aug 25, 2024 Billing Provider: GHULAM NELSON MD Common Visit Codes: [id number] CARE-EACH +30MIN GHULAM NELSON MD Aug 25, 2024 17:46
[2024-08-25 19:00] LABS: COVID19 ANTIGEN SOFIA FIA NEGATIVE (NEGATIVE); Rapid Influenza A Negative (Negative); Rapid Influenza B Negative (Negative)
[2024-08-25] MEDS: VANCOMYCIN 750MG KIT 100 ML IV SCH (22:00)
[2024-08-25 22:19] LABS: Anion Gap 12 (5-15); Calcium 9.8 mg/dL (8.7-10.4)
[2024-08-25 22:24] LABS: BUN/Creatinine Ratio 19.2 (10.0-20.0); Blood Urea Nitrogen 15 mg/dL (9-23)
[2024-08-25 22:26] LABS: Carbon Dioxide 18 mmol/L (20-31); Chloride 116 mmol/L (98-107); Glucose 151 mg/dL (74-106); Potassium 3.4 mmol/L (3.5-5.1); Sodium 146 mmol/L (136-145)
[2024-08-25 22:47] LABS: Lactic Acid w/Reflex 4.8 mmol/L (0.4-2.0)
[2024-08-26] VITALS (14 sets, daily range): BP systolic 99–141; BP diastolic 46–78; PULSE 70–104; RESP 16–20; O2SAT 94–100
[2024-08-26 06:53] LABS: Basophils # (auto) 0 10 ^3/uL (0-0.2); Basophils % (auto) 0.3 % (0.0-2.0); Eosinophils # (auto) 0 10 ^3/uL (0-0.8); Hematocrit 33.4 % (36.0-46.0); Hemoglobin 11.3 g/dL (12.2-16.2); Lymphocytes # (auto) 0.9 10 ^3/uL (0.4-5.4); Mean Corpuscular Hemoglobin 33.9 pg (28.0-32.0); Mean Corpuscular Hgb Conc. 33.7 g/dL (32.0-36.0); Mean Corpuscular Volume 100.7 fL (80.0-100.0); Monocytes # (auto) 0.8 10 ^3/uL (0-1.3); Monocytes % (auto) 9.4 % (0.0-12.0); Neutrophils # (auto) 6.8 10 ^3/uL (1.6-8.6); Neutrophils % (auto) 79.3 % (37.0-80.0); Platelet Count (auto) 115 10^3/uL (140-450); Red Blood Cells 3.32 10^6/uL (4.0-5.20); Red Cell Distribution Width 13.5 % (11.8-14.3); White Blood Cell 8.6 10^3/uL (4.4-10.8)
[2024-08-26 07:06] LABS: Base Excess -4.9 mmol/L (-2.0-3.0)
[2024-08-26 07:13] LABS: Alanine Aminotransferase 20 U/L (7-40); Albumin 3.8 g/dL (3.2-4.8); Alkaline Phosphatase 67 U/L (46-116); Anion Gap 10 (5-15); Aspartate Aminotransferase 14 U/L (13-40); BUN/Creatinine Ratio 29.5 (10.0-20.0); Bilirubin, Total 0.8 mg/dL (0.2-1.0); Blood Urea Nitrogen 18 mg/dL (9-23); Calcium 9.8 mg/dL (8.7-10.4); Sodium 145 mmol/L (136-145)
[2024-08-26 07:25] LABS: Carbon Dioxide 20 mmol/L (20-31); Chloride 115 mmol/L (98-107); Glucose 143 mg/dL (74-106); Potassium 2.8 mmol/L (3.5-5.1); Total Protein 5.6 g/dL (5.7-8.2)
[2024-08-26] MEDS: POTASSIUM CHL 20MEQ/100ML 100 ML IV SCH (08:53)
[2024-08-26] MEDS: MAGNESIUM SULFATE 1GM/100ML 100 ML IV ONE (08:53)
[2024-08-26] MEDS ORDERED: POTASSIUM CHLORIDE 40 MEQ, LIDOCAINE 1% (LOCAL ANESTH.) 4 ML in SODIUM CHL 0.9% 250 ML IV ONE (12:00)
[2024-08-26] MEDS: LACTATED RINGER'S 1,000 ML IV ONE (12:20)
[2024-08-26 15:11] LABS: Anion Gap 8 (5-15); Carbon Dioxide 21 mmol/L (20-31); Potassium 3.6 mmol/L (3.5-5.1); Sodium 145 mmol/L (136-145)
[2024-08-26 15:18] LABS: BUN/Creatinine Ratio 30.2 (10.0-20.0); Blood Urea Nitrogen 16 mg/dL (9-23); Glucose 98 mg/dL (74-106)
[2024-08-26 15:30] LABS: Chloride 116 mmol/L (98-107)
--- NOTE | 2024-08-26 19:10 | DVHPN2 ---
Subjective Update 08/26 08/25-no significant updates today, patient is sedated. Propofol weaned off. Per patient's family, the patient never had seizures and episodes of spasms/diffuse body spasms, patient does not lose consciousness. Patient is on baclofen and Valium for chronic diffuse body muscle spasms. She has been recently diagnosed as stiff person syndrome. Lactic is high, other workup is all negative. We will need neurology to follow up on this case. 08/26 patient remains intubated sedated. Lactic acid is falling down to 4 today. Patient was waking up while on sedation. We will try SAT sedation vacation trial. No CPAP trial today neurology to evaluate tomorrow for spasms/she was there/neuromuscular disorder. Plan for full SVT and SBT tomorrow. Reviewed: H&P Changes from previous H/P or p: No Changes General: Per HPI Objective Vitals Vital Signs Date Time Temp Pulse Resp B/P (MAP) Pulse Ox O2 Delivery O2 Flow Rate FiO2 08/26/24 18:45 99.9 86 16 154/54 (87) 96 99.9 08/26/24 18:15 30 08/26/24 07:20 Mechanical Ventilator+ 08/25/24 08:33 4 Intake/Output Intake and Output 08/26/24 07:00 Intake Total 2002.0 ml Output Total 400 ml Balance 1602.0 ml Intake IV Total 2002.0 ml Output Urine Total 400 ml Exam And Versed, and now, Levophed, Vent settings per RT Lungs clear Abdomen is soft nontender bowel sounds hypoactive Cords with telephone number Legs with trace pedal edema. Medications Current Medications Medications Dose Ordered Sig/Jeanne Route Start Time Stop Time Status Last Admin Dose Admin Propofol 100 ml @ 2.46 mls/hr Q24H IV 08/24/24 20:45 08/24/24 21:01 2.46 MLS/HR Fentanyl Citrate 250 ml @ 2.5 mls/hr Q24H IV 08/24/24 23:00 08/25/24 23:00 17.5 MLS/HR Nitroglycerin 0.4 mg Q5MINP PRN SL 08/24/24 23:30 Morphine Sulfate 2 mg Q30M PRN IV 08/24/24 23:30 Midazolam HCl 50 ml @ 1 mls/hr Q24H IV 08/25/24 00:15 08/26/24 15:55 7 MLS/HR Ipratropium [place] 0.5 mg Q6HR NEB 08/25/24 06:00 08/26/24 18:35 0.5 MG Albuterol 2.5 mg Q6HR NEB 08/25/24 06:00 08/26/24 18:35 2.5 MG Vancomycin HCl 0 ml @ 0 mls/hr UD IV 08/25/24 13:45 Cefepime HCl 50 ml @ 12.5 mls/hr Q12H IV 08/25/24 14:00 08/26/24 14:24 12.5 MLS/HR Vancomycin HCl 100 ml @ 100 mls/hr Q12H IV 08/25/24 22:00 08/26/24 10:41 100 MLS/HR Acetaminophen 650 mg Q4HP PRN PO 08/25/24 21:00 Ibuprofen 600 mg Q6HP PRN PO 08/25/24 21:00 Laboratory Results Laboratory Tests 08/26/24 06:20 08/26/24 14:26 Chemistry Test 08/25/24 21:31 08/26/24 06:20 08/26/24 14:26 Calcium Level 9.8 mg/dL (8.7-10.4) 9.8 mg/dL (8.7-10.4) 10.0 mg/dL (8.7-10.4) Albumin 3.8 g/dL (3.2-4.8) Total Protein 5.6 g/dL (5.7-8.2) L LFT Test 08/26/24 06:20 Alanine Aminotransferase (ALT) 20 U/L (7-40) Alkaline Phosphatase 67 U/L (46-116) Aspartate Amino Transferase (AST) 14 U/L (13-40) Total Bilirubin 0.8 mg/dL (0.2-1.0) Urinalysis Test 08/24/24 23:44 Urine Color Yellow (Yellow) Urine Clarity Turbid (Clear) H Urine pH 5.5 (5.0-9.0) Urine Specific [place] 1.023 (1.001-1.035) Urine Protein Trace (Negative) H Urine Ketones Negative (Negative) Urine Blood Negative /uL (Negative) Urine Nitrite Negative (Negative) Urine Bilirubin Negative (Negative) Urine Urobilinogen Normal mg/dL (Negative) Urine Leukocyte Esterase Negative /uL (Negative) Urine RBC 1 /hpf (0 - 4) Urine Microscopic WBC 1 /HPF (0-5) Urine Squamous Epithelial Cells Few /hpf (<5) Urine Bacteria None seen /hpf (None Seen) Urine Hyaline Casts Few /lpf (0 - 2) Urine Mucus Few (None Seen) Urine Glucose Normal mg/dL (Normal) Blood Gas Results Test 08/26/24 07:00 Arterial Blood pH 7.418 (7.350-7.450) FiO2 % 30.0 Microbiology Microbiology Date/Time Source Procedure Growth Status 08/25/24 17:23 Nose MRSA Screen - Final Complete 08/25/24 03:20 Blood Blood Culture - Preliminary NO GROWTH AFTER 24 HOURS OF INCUBATION. Resulted 08/24/24 20:40 Sputum Gram Stain - Final Resulted 08/24/24 20:40 Sputum Respiratory Culture - Preliminary Resulted Labs and/or images reviewed: Labs reviewed by me, Image(s) reviewed by me Assessment/Plan Assessment/Plan 08/26 patient remains intubated sedated. Lactic acid is falling down to 4 today. Patient was waking up while on sedation. We will try SAT sedation vacation trial. No CPAP trial today neurology to evaluate tomorrow for spasms/she was there/neuromuscular disorder. Plan for full SVT and SBT tomorrow. NEURO: History of seizure-like activity, since 1 year Acute metabolic encephalopathy, likely due to sepsis/hypertensive emergency ? Stiff person syndrome Patient is sedated, RASS score -[address] scan does not show any acute intracranial abnormalities All lab workup has been negative thus far. -neurology consulted - vanc/ceftriaxone - IVF CARDIOVASCULAR: Hypertensive emergency, likely leading to encephalopathy Amlodipine 5 mg Hydralazine p.r.n. SBP > 170 PULMONARY: Sepsis, likely due to aspiration pneumonia Pneumonia, likely due to gram+ gram- bacteria/ viral/aspiration Atelectasis Possible pneumonia likely due to Gram-positive Gram-negative bacteria/viral Patient is on mechanical ventilation with a setting of VT 500, RR 16, peep 5, and FiO2 40% COVID, flu, negative MRSA nares Empiric antibiotic of vanc/cefepime (prior doxycycline and Unasyn) Breathing treatment p.r.n. GASTROINTESTINAL: Mild hepatic steatosis, CT finding she Pancolonic diverticulosis, CT finding GENITOURINARY: ENDOCRINE: TSH and ammonia normal Renal/METABOLIC: Hyperchloremia, monitoring Asymptomatic hypercalcemia, likely due to dehydration Hypokalemia, repleted Lactic acidosis lactic 7.5 then 7.1 knees regulated HEME: D-dimer is raised at 0.74 Doppler ultrasound of lower limb negative/normal INFECTIOUS DISEASE: Sepsis, likely due to aspiration pneumonia Blood culture pending DIET: enternal Clinimix DVT prophylax: Lovenox Code status: Goal of care discussed with the patient's daughter and son-in-law, modified DNR (okay with intubation, no chest compression or electrical cardioversion) LINES/DRAINS/ACCESS: ETT: Intubated on 08/24/2024 IV access: Left internal jugular CVC, placed on 08/22/24 Drips: Propofol stopped Versed Fentanyl Rosario catheter: Placed on 08/22/2024 DISPOSITION: ICU status Patient's status discussed with patient's daughter and son-in-law at the bedside. Plan discussed with: Patient My Orders Orders - GHULAM NELSON MD Procedure Category Date Status Time * Neurology Consult CONS 08/26/24 Transmitted 11:44 Lactated Ringer's PHA 08/26/24 In Process 12:00 Communication Order ORDERS 08/26/24 Transmitted 15:47 Complete Blood Count LAB 08/27/24 Verified 04:00 Creatinine LAB 08/27/24 Verified 04:00 Date of Service: Aug 26, 2024 Billing Provider: GHULAM NELSON MD Common Visit Codes: [id number] CARE-EACH +30MIN GHULAM NELSON MD Aug 26, 2024 19:10
--- NOTE | 2024-08-26 22:20 | DVHINCON2 ---
Date of service: Aug 26, 2024 Referring Physician Roseanna Russo MD Reason for Consultation Acute hypoxic respiratory failure requiring mechanical ventilator and aspiration pneumonia History of Present Illness A 69-year-old woman with past medical history of hypertension, anxiety and seizure-like activity since 1 year, presents on 08/24/24 due to altered mental status. Per daughter, pt has episodes of seizure-like activity during which she becomes stiff with jerky limb movements but no loss of consciousness. The attacks come in spells, occurring over a span of several hours, each spell lasts a few minutes with brief interval between episodes. During this interval she remains oriented, no postictal like symptoms (including confusion). The total duration of these spells is approximately 2-3 hours, which recently has increased and the patient was more altered past 2 days. She also is having visual hallucination and been bed-bound since 2 days. She has an appointment in October with a neurologist. Upon arrival to the ED, due to altered level of mental status and low SaO2, pt was sedated and intubated. Patient was admitted for further care and pulmonary consultation is requested for evaluation and management of acute hypoxic respiratory failure requiring mechanical ventilator and aspiration pneumonia. Review of Systems: Unable to obtain d/t intubated status. Past Medical History: Hypertension, anxiety, seizures. Past Surgical History: Medications: Reviewed. Baclofen and Valium as needed Allergies: No known drug allergies. Family History: No family history of premature CAD. No family history of lung disorders. Social History: Nonsmoker. No alcohol or illicit drug use. Allergies: Coded Allergies: NO KNOWN ALLERGIES (Unverified , 08/24/24) Current Medications Current Medications Medications (Trade) Dose Ordered Sig/Jeanne Route PRN Reason Start Time Stop Time Status Last Admin Potassium Chloride 100 ml @ 50 mls/hr Q2H IV 08/26/24 08:30 08/26/24 16:29 DC 08/26/24 15:51 Vital Signs Vital Signs Date Time Temp Pulse Resp B/P (MAP) Pulse Ox O2 Delivery O2 Flow Rate FiO2 08/26/24 21:15 100.2 99 19 139/70 (93) 99 100.2 08/26/24 19:55 30 08/26/24 07:20 Mechanical Ventilator+ 08/25/24 08:33 4 Physical Exam Gen.: Patient lying in bed in medical ICU. Sedated, intubated on mechanical ventilator. Head: Normocephalic, atraumatic. Eyes: PERRLA. Ears: Normal external anatomy. Throat: Endotracheal tube and orogastric tube in place. Neck: Supple, trachea midline. Chest: Transmitted breath sounds bilaterally. Decreased air entry bilaterally. No wheezing. Bibasilar crackles. Cardiovascular: Positive S1, positive S2. Regular rate and rhythm. Abdomen: Positive bowel sounds in all 4 quadrants. Soft, nontender, nondistended. : Rosario in place. Normal external genitalia. Rectal: Deferred. Skin: Warm, dry. Intact. Extremities: 2+ radial pulses bilaterally. No lower extremity edema. Neuro: Sedated. Labs/Diagnostic Data Labs Test 08/26/24 19:15 08/26/24 14:26 08/26/24 07:00 08/26/24 06:20 Range/Units Potassium Level 4.8 3.5-5.1 mmol/L Sodium Level 145 136-145 mmol/L Chloride Level 116 H 98-107 mmol/L Carbon Dioxide Level 21 20-31 mmol/L Anion Gap 8 5-15 Blood Urea Nitrogen 16 9-23 mg/dL Creatinine 0.53 L 0.550-1.02 mg/dL Glomerular Filtration Rate Calc 99 >90 mL/min BUN/Creatinine Ratio 30.2 H 10.0-20.0 Serum Glucose 98 74-106 mg/dL Calcium Level 10.0 8.7-10.4 mg/dL Blood Gas Specimen Type Arterial Blood Gas Sample Site Right radial Blood Gas Patient Temperature 37.0 Arterial Blood Date Drawn [id number] Arterial Blood pH 7.418 7.350-7.450 Arterial Blood Partial Pressure CO2 29.4 L 32.0-45.0 mmHg Arterial Blood Partial Pressure O2 87.9 83.0-108.0 mmHg Arterial Blood HCO3 18.6 L 21.0-28.0 mmol/L Arterial Blood Oxygen Saturation 96.5 94.0-98.0 % Arterial Blood Base Excess -4.9 L -2.0-3.0 mmol/L Arterial Blood Oxyhemoglobin 95.3 94.0-98.0 % Arterial Blood Carboxyhemoglobin 0.6 0.5-1.5 % Arterial Blood Methemoglobin 0.6 0.0-1.5 % Andrea Test Modified Blood Gas Total Hemoglobin 11.70 L 12.0-16.0 g/dL Blood Gas Set Respiration Rate 16.0 Blood Gas Modality Vent - ac FiO2 % 30.0 Blood Gas Tidal Volume 500.0 Blood Gas PEEP or CPAP 5.0 White Blood Count 8.6 4.4-10.8 10^3/uL Red Blood Count 3.32 L 4.0-5.20 10^6/uL Hemoglobin 11.3 L 12.2-16.2 g/dL Hematocrit 33.4 L 36.0-46.0 % Mean Corpuscular Volume 100.7 H 80.0-100.0 fL Mean Corpuscular Hemoglobin 33.9 H 28.0-32.0 pg Mean Corpuscular Hemoglobin Concent 33.7 32.0-36.0 g/dL Red Cell Distribution Width 13.5 11.8-14.3 % Platelet Count 115 L 140-450 10^3/uL Mean Platelet Volume 9.4 6.9-10.8 fL Neutrophils (%) (Auto) 79.3 37.0-80.0 % Lymphocytes (%) (Auto) 11.0 10.0-50.0 % Monocytes (%) (Auto) 9.4 0.0-12.0 % Eosinophils (%) (Auto) 0.0 0.0-7.0 % Basophils (%) (Auto) 0.3 0.0-2.0 % Neutrophils # (Auto) 6.8 1.6-8.6 10 ^3/uL Lymphocytes # (Auto) 0.9 0.4-5.4 10 ^3/uL Monocytes # (Auto) 0.8 0-1.3 10 ^3/uL Eosinophils # (Auto) 0 0-0.8 10 ^3/uL Basophils # (Auto) 0 0-0.2 10 ^3/uL Nucleated Red Blood Cells 0.0 % Total Bilirubin 0.8 0.2-1.0 mg/dL Aspartate Amino Transferase (AST) 14 13-40 U/L Alanine Aminotransferase (ALT) 20 7-40 U/L Alkaline Phosphatase 67 46-116 U/L Total Protein 5.6 L 5.7-8.2 g/dL Albumin 3.8 3.2-4.8 g/dL Test 08/25/24 23:31 08/25/24 17:30 08/25/24 08:35 08/25/24 03:20 Range/Units Lactic Acid Level 4.8 *H 0.4-2.0 mmol/L Influenza Type A Antigen Negative Negative Influenza Type B Antigen Negative Negative SARS-CoV-2 Antigen (Rapid) Negative NEGATIVE Magnesium Level 1.8 1.6-2.6 mg/dL Prothrombin Time 10.5 9.3-11.8 sec Prothrombin Time INR 0.99 0.9-1.15 Ammonia 16 11-32 umol/L Thyroid Stimulating Hormone (TSH) 1.83 0.55-4.78 uIU/mL Test 08/24/24 23:44 08/24/24 22:00 08/24/24 18:01 Range/Units Urine Color Yellow Yellow Urine Clarity Turbid H Clear Urine pH 5.5 5.0-9.0 Urine Specific [place] 1.023 1.001-1.035 Urine Protein Trace H Negative Urine Ketones Negative Negative Urine Blood Negative Negative /uL Urine Nitrite Negative Negative Urine Bilirubin Negative Negative Urine Urobilinogen Normal Negative mg/dL Urine Leukocyte Esterase Negative Negative /uL Urine RBC 1 0 - 4 /hpf Urine Microscopic WBC 1 0-5 /HPF Urine Squamous Epithelial Cells Few <5 /hpf Urine Bacteria None seen None Seen /hpf Urine Hyaline Casts Few 0 - 2 /lpf Urine Mucus Few None Seen Urine Glucose Normal Normal mg/dL Urine Opiates Screen Neg NEGATIVE Urine Fentanyl Screen Neg NEGATIVE Urine Barbiturates Screen Neg NEGATIVE Urine Phencyclidine Screen Neg NEGATIVE Urine Amphetamines Screen Neg NEGATIVE Urine Benzodiazepines Screen Pos NEGATIVE Urine Cocaine Screen Neg NEGATIVE Urine Cannabinoids Screen Neg NEGATIVE Blood Gas Critical Value Read Back Yes Blood Gas Notified Whom [place] md Blood Gas Notified Time [id number] Blood Gas Notified By Rochelle nicole cane flume watchman D-Dimer, Quantitative 0.74 H 0.0-0.49 mg/L FEU Plasma/Serum Blood Alcohol 5.1 <10 mg/dL Microbiology Date/Time Source Procedure Growth Status 08/25/24 17:23 Nose MRSA Screen - Final Complete 08/25/24 03:20 Blood Blood Culture - Preliminary NO GROWTH AFTER 24 HOURS OF INCUBATION. Resulted 08/24/24 20:40 Sputum Gram Stain - Final Resulted 08/24/24 20:40 Sputum Respiratory Culture - Preliminary Resulted Assessment Impression: Acute hypoxic respiratory failure On mechanical ventilator Sepsis Aspiration pneumonia Plan: s/p intubation on mechanical ventilator. CXR on 08/25/24 demonstrates left basilar atelectasis or pneumonia. Cardiomegaly with mild congestion. Devices in place. ABG reviewed, compensated. On AC mode; RR 16, VT 500, PEEP 5, FiO2 30% Titrate FIO2 to keep O2 saturation above 90%. VAP bundle. Daily ABG and CXR while intubated Sedate for ventilator synchrony - on Versed, Fentanyl Continue antibiotics. F/u cultures. Start pressors if necessary to maintain a mean arterial blood pressure greater than 65 mmHg. Monitor renal function Monitor electrolytes. Supplement as necessary. Monitor ins and outs. Maintain euvolemia. Taper sedation as tolerated Plan for CPAP in AM. GI prophylaxis. DVT prophylaxis. Prognosis: Poor given patient's multiple co-morbidities. Condition: Critical Rest of plan per hospitalist and other consultants. A total of 35 minutes of critical care time was spent reviewing the patient record, examining the patient, making a diagnostic and therapeutic plan, discussing this plan with the medical personnel, following up on diagnostic studies and following the patient for clinical stability excluding any and all procedures. At least 50% of this time was spent in direct, [id number] contact. Thank you Dr. Russo, for allowing me to participate in this patient's care. Further recommendations will depend on the patient's clinical course. Please do not hesitate to contact me if you have any questions or concerns. This medical document was created using an electronic medical record system with [employer] dictation system. Although these documentations are being carefully reviewed, there may still be some phonetic and typographical changes. The errors are purely typographical, due to imperfection on the software program, and do not reflect any compromise in the patient's medical care. Plan discussed with: Other (MITCH Mckeon/MD Russo) VONNIE BRYSON MD Aug 26, 2024 22:20
[2024-08-27] VITALS (13 sets, daily range): BP systolic 128–160; BP diastolic 59–80; PULSE 78–101; RESP 16–29; O2SAT 93–100
[2024-08-27 03:52] LABS: Basophils # (auto) 0 10 ^3/uL (0-0.2); Eosinophils # (auto) 0 10 ^3/uL (0-0.8); Eosinophils % (auto) 0.4 % (0.0-7.0); Lymphocytes # (auto) 0.8 10 ^3/uL (0.4-5.4); White Blood Cell 9.1 10^3/uL (4.4-10.8)
[2024-08-27 03:55] LABS: Basophils % (auto) 0.3 % (0.0-2.0); Hematocrit 32.1 % (36.0-46.0); Lymphocytes % (auto) 9.3 % (10.0-50.0); Mean Corpuscular Hemoglobin 34.6 pg (28.0-32.0); Mean Corpuscular Hgb Conc. 34.3 g/dL (32.0-36.0); Monocytes # (auto) 0.8 10 ^3/uL (0-1.3); Monocytes % (auto) 9.3 % (0.0-12.0); Neutrophils # (auto) 7.3 10 ^3/uL (1.6-8.6); Neutrophils % (auto) 80.7 % (37.0-80.0); Platelet Count (auto) 105 10^3/uL (140-450); Red Blood Cells 3.17 10^6/uL (4.0-5.20); Red Cell Distribution Width 13.7 % (11.8-14.3)
[2024-08-27 08:12] LABS: Base Excess -6.2 mmol/L (-2.0-3.0)
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
[2024-08-27] MEDS: IBUPROFEN 600 MG TAB PO PRN (10:27)
[2024-08-27] MEDS ORDERED: LORazepam 2MG/ML-1ML VIAL IV PRN ×2 (12:15→12:30)
[2024-08-27] MEDS: PIPERACILLIN-TAZOB 3.375GM 100 ML IV ONE (16:55)
--- NOTE | 2024-08-27 18:29 | DVH ---
CHEST RADIOGRAPH Indication: OG Tube placement Technique: Single frontal view of the chest was obtained COMPARISON: XY CHEST XRAY 1 VIEW on DOS: 08/25/24, XY CHEST XRAY 1 VIEW on DOS: 08/25/24, XY CHEST XRAY 1 VIEW on DOS: 08/24/24, XY CHEST XRAY 1 VIEW on DOS: 08/24/24, XY CHEST PORTABLE on DOS: 08/24/24 FINDINGS: Lines and Tubes: Endotracheal tube 2cm above the chronic. left-sided neck line ends and superior vena cava Normal heart size No pneumothorax NASAL GASTRIC tube ends in the body of the stomach Lungs: Clear Pleura: No effusion. No pneumothorax. Cardiomediastinal contours: Unremarkable Bones: Unremarkable IMPRESSION: 1. Nasal gastric tube ends in the body of the stomach 2. Tubes and lines well positioned 3. No pneumothorax
[2024-08-27] MEDS: ACETAMINOPHEN 325 MG TAB PO PRN (19:07)
[2024-08-27] MEDS: PIPERACILLIN-TAZOB 3.375GM 100 ML IV SCH (22:13)
[2024-08-28] VITALS (15 sets, daily range): BP systolic 127–182; BP diastolic 62–94; PULSE 65–96; RESP 16–31; O2SAT 95–100
[2024-08-28] MEDS: VANCOMYCIN 750MG KIT 100 ML IV SCH ×2 (01:30→17:34)
[2024-08-28 05:16] LABS: Basophils # (auto) 0 10 ^3/uL (0-0.2); Basophils % (auto) 0.4 % (0.0-2.0); Eosinophils # (auto) 0 10 ^3/uL (0-0.8); Eosinophils % (auto) 0.5 % (0.0-7.0); Lymphocytes # (auto) 0.7 10 ^3/uL (0.4-5.4); Monocytes # (auto) 0.7 10 ^3/uL (0-1.3); Neutrophils # (auto) 4.5 10 ^3/uL (1.6-8.6); Red Blood Cells 3.09 10^6/uL (4.0-5.20); Red Cell Distribution Width 13.2 % (11.8-14.3)
[2024-08-28 05:20] LABS: Hematocrit 30.7 % (36.0-46.0); Hemoglobin 10.5 g/dL (12.2-16.2); Lymphocytes % (auto) 12.4 % (10.0-50.0); Mean Corpuscular Hemoglobin 34.1 pg (28.0-32.0); Mean Corpuscular Hgb Conc. 34.3 g/dL (32.0-36.0); Mean Corpuscular Volume 99.4 fL (80.0-100.0); Monocytes % (auto) 11.4 % (0.0-12.0); Neutrophils % (auto) 75.3 % (37.0-80.0); Platelet Count (auto) 107 10^3/uL (140-450)
[2024-08-28 05:25] LABS: Potassium 3.6 mmol/L (3.5-5.1); Sodium 140 mmol/L (136-145)
[2024-08-28 05:26] LABS: Anion Gap 11 (5-15)
[2024-08-28 05:32] LABS: BUN/Creatinine Ratio 19.2 (10.0-20.0); Blood Urea Nitrogen 10 mg/dL (9-23); Magnesium 1.9 mg/dL (1.6-2.6)
[2024-08-28 05:45] LABS: Calcium 10.5 mg/dL (8.7-10.4); Carbon Dioxide 18 mmol/L (20-31); Chloride 111 mmol/L (98-107); Glucose 108 mg/dL (74-106)
--- NOTE | 2024-08-28 06:04 | DVH ---
EXAM: XR Cervical Spine, 6 or More Views CLINICAL INDICATION: [facility] vent TECHNIQUE: Frontal, lateral, oblique and flexion/extension views of the cervical spine. COMPARISON: XY CHEST XRAY 1 VIEW on DOS: 08/27/24, XY CHEST XRAY 1 VIEW on DOS: 08/25/24, XY CHEST XRAY 1 VIEW on DOS: 08/25/24, XY CHEST XRAY 1 VIEW on DOS: 08/24/24, XY CHEST XRAY 1 VIEW on DOS: 08/24/24 FINDINGS: VERTEBRAE: Unremarkable. No acute fracture. Normal alignment. No instability. DISC SPACES: No acute findings. No significant narrowing. SOFT TISSUES: Unremarkable. HEART: Cardiomegaly with mild congestion. TUBES, LINES AND DEVICES: ETT is at the adonis. Retraction may be beneficial. OTHER FINDINGS: . .. . IMPRESSION: 1. ETT is at the adonis. Retraction may be beneficial. 2. Cardiomegaly with mild congestion.
[2024-08-28 06:54] LABS: Base Excess -5.1 mmol/L (-2.0-3.0)
[2024-08-28] MEDS: POTASSIUM EFFERVESENT TAB 25 MEQ GT ONE (07:58)
--- NOTE | 2024-08-28 08:25 | DVHPNRES ---
Progress Note Date Seen: Aug 27, 2024 Resident Creating Document: BRITNEY MALDONADO RESIDENT Medical Necessity Reason Pt with a Central, PICC or Fol: Yes The following are medically ne: Central Line, Rosario Catheter Subjective Review of Systems pt seen and examined at bedside currently sedated and intubated, on [facility] vent ROS Could not be obtained Objective vital signs Vital Sign Date Time Temp Pulse Resp B/P (MAP) Pulse Ox O2 Delivery O2 Flow Rate FiO2 08/28/24 07:59 149/66 08/28/24 07:58 77 16 98 30 08/28/24 06:30 97.5 97.5 08/27/24 19:49 Mechanical Ventilator+ Total Intake and Output 08/27/24 08/27/24 08/28/24 15:00 23:00 07:00 Intake Total 112.5 ml 117.46 ml 225 ml Balance 112.5 ml 117.46 ml 225 ml medications Current Medications Medications Dose Ordered Sig/Jeanne Route Start Time Stop Time Status Last Admin Dose Admin Propofol 100 ml @ 2.46 mls/hr Q24H IV 08/24/24 20:45 08/27/24 21:45 2.46 MLS/HR Fentanyl Citrate 250 ml @ 2.5 mls/hr Q24H IV 08/24/24 23:00 08/27/24 21:45 2.5 MLS/HR Midazolam HCl 50 ml @ 1 mls/hr Q24H IV 08/25/24 00:15 08/26/24 15:55 7 MLS/HR Ipratropium [place] 0.5 mg Q6HR NEB 08/25/24 06:00 08/28/24 06:32 0.5 MG Albuterol 2.5 mg Q6HR NEB 08/25/24 06:00 08/28/24 06:32 2.5 MG Vancomycin HCl 0 ml @ 0 mls/hr UD IV 08/25/24 13:45 Acetaminophen 650 mg Q4HP PRN PO 08/25/24 21:00 08/27/24 19:07 650 MG Lorazepam 1 mg Q5MINP PRN IV 08/27/24 12:15 Lorazepam 1 mg ONCE PRN IV 08/27/24 12:30 08/30/24 12:29 Piperacillin Sod/ Tazobactam Sod 100 ml @ 25 mls/hr Q8HR IV 08/27/24 22:00 08/28/24 06:09 25 MLS/HR Vancomycin HCl 100 ml @ 100 mls/hr Q12H IV 08/27/24 22:30 08/28/24 01:30 100 MLS/HR Dexmedetomidine HCl 400 mcg/ Dextrose 100 ml @ 4.1 mls/hr Q24H IV 08/27/24 22:30 08/28/24 07:59 6.15 MLS/HR Examination Examination General Appearance: Sedated and intubated HEENT: EOMI Respiratory: Clear to auscultation, Normal air movement, on mech vent Cardiovascular: Regular rate, Normal S1, Normal S2 Abdominal: Normal bowel sounds Extremities: No cyanosis, No edema, Normal pulses, No tenderness/swelling Skin: No rashes, No breakdown Neuro: Sedated and intubated laboratory and microbiology Laboratory Tests 08/28/24 04:53 Test 08/28/24 04:53 Range/Units Serum Glucose 108 H 74-106 mg/dL Microbiology Date/Time Source Procedure Growth Status 08/25/24 17:23 Nose MRSA Screen - Final Complete 08/25/24 03:20 Blood Blood Culture - Preliminary NO GROWTH AFTER 72 HOURS OF INCUBATION. Resulted 08/24/24 20:40 Sputum Gram Stain - Final Resulted 08/24/24 20:40 Sputum Respiratory Culture - Preliminary Resulted Labs and/or images reviewed: Labs reviewed by me, Image(s) reviewed by me Problem List/Assessment/Plan Problem List/Assessment/Plan ASSESSMENT/PLAN Neurology #Sedation -off sedation -will start precedex for CPAP trial in the AM #?Seizure vs ?psychogenic non epileptic seizures -neurology on board #Metabolic encephalopathy due to ?sepsis ?post-ictal ?hypertensive encephalopathy -Head CT Cardiology #Hypertensive emergency -currently out of emergency range Resp #Acute hypoxic resp failure due to ?aspiration pneumonia -currently on mech vent -IV antibiotics -panculture #?aspiration pneumonia --IV antibiotics -panculture GI #Mild hepatic steatosis -seen on CT #Pancolonic diverticulosis -seen on CT Hematology #Normocytic/macrocytic Anemia -monitor #Thrombocytopenia likely due to sepsis -monitor Nephrology #Hypokalemia -corrected #Metabolic acidosis with resp alkalosis -monitor ABG in the AM Infectious Disease #Sepsis due to aspiration pneumonia -IV fluids -IV antibiotics -pancultures Lines left IJ CVC 08/26/24 Rosario Cath 08/24/24 Drips Precedex DVT prophylaxis will start Lovenox PUD prophylaxis will start Protonix Nutrition on hold because of CPAP trial bowel regimen will start colace Critical care time excluding procedures 87 minutes Code status discussed with the patient's family >21 min FULL CODE Case discussion with Dr calzada Family at bedside updated about the condition of the patient Plan discussed with: Daughter, Other My Orders My Orders Orders - BRITNEY MALDONADO Procedure Category Date Status Time Lorazepam 2mg/Ml Inj PHA 08/27/24 In Process (Ativan Inj) 12:15 Chest Portable XY 08/28/24 Resulted 04:00 Abg W/ Co-Ox RT 08/28/24 Logged 04:00 D5w 5% (Dextrose 5%) PHA 08/27/24 In Process W/Dexmedetomidine 22:30 Date of Service: Aug 27, 2024 Billing Provider: NANETTE CALZADA MD Common Visit Codes: [id number] CARE 30-74 MIN, [id number] CARE-EACH +30MIN BRITNEY MALDONADO Aug 28, 2024 08:25 NANETTE CALZADA MD Aug 28, 2024 13:21
--- NOTE | 2024-08-28 09:00 | DVH ---
CHEST RADIOGRAPH Indication: N G TUBE PLACEMENT Technique: Single frontal view of the chest was obtained COMPARISON: XY CHEST PORTABLE on DOS: 08/28/24, XY CHEST XRAY 1 VIEW on DOS: 08/27/24, XY CHEST XRAY 1 EW on DOS: 08/25/24, XY CHEST XRAY 1 VIEW on DOS: 08/25/24, XY CHEST XRAY 1 VIEW on DOS: 08/24/24 FINDINGS: Lines and Tubes: Endotracheal tube is slightly low in position. Enteric catheter in satisfactory pos ition. Left central venous catheter in satisfactory position. Lungs: Congestion Pleura: No effusion. No pneumothorax. Cardiomediastinal contours: Unremarkable Bones: Unremarkable IMPRESSION: Recommend retraction of endotracheal tube by 1 cm.
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
[2024-08-28] MEDS: PANTOPRAZOLE 40 MG/10 ML VIAL INJ IV ONE (12:07)
--- NOTE | 2024-08-28 12:16 | DVH ---
MRI BRAIN WITHOUT CONTRAST CLINICAL HISTORY: Sz TECHNIQUE: Multiplanar, multisequence MR images of the brain without intravenous contrast. Comparison: CT head 08/25/2024 FINDINGS: There is a tiny 4 mm focus of restricted diffusion in the medial right temporal lobe . There are no o bvious corresponding T2 or T1 signal changes. The novak and white matter signal is appropriate. There is no evidence of hemorrhage, mass, mass effec t or midline shift. There is no hydrocephalus or extra-axial fluid collection. The visualized intracr anial vasculature demonstrates appropriate flow-voids. The sagittal midline structures appear unremar kable. The craniocervical junction is within normal limits. The calvarium demonstrates normal marrow signal. There is mucosal thickening in the paranasal sinuses. There is small amount of fluid in the bilateral mastoid air cells. IMPRESSION: 1. Nonspecific tiny 4 mm focus of restricted diffusion in the medial right temporal lobe. This may be artifactual or related to postictal changes. Clinical correlation is recommended to assess for possi ble CVA. Critical findings discussed with Nurse Camacho by Dr. Melchor Oh via phone on 08/28/2024 12:14 PM. HS:Y
[2024-08-28] MEDS: FUROSEMIDE 20 MG/2 ML VIAL IV ONE (14:24)
[2024-08-28 17:05] LABS: Base Excess -4.7 mmol/L (-2.0-3.0)
--- NOTE | 2024-08-28 19:39 | DVHPNRES ---
Progress Note Date Seen: Aug 28, 2024 Resident Creating Document: BRITNEY MALDONADO RESIDENT Medical Necessity Reason Pt with a Central, PICC or Fol: Yes The following are medically ne: Central Line, Rosario Catheter Subjective Review of Systems pt seen and examined at bedside was on mech vent in the AM later extubated Objective vital signs Vital Sign Date Time Temp Pulse Resp B/P (MAP) Pulse Ox O2 Delivery O2 Flow Rate FiO2 08/28/24 18:00 94 26 161/74 (103) 97 08/28/24 15:21 8.0 08/28/24 13:39 30 08/28/24 12:28 Mechanical Ventilator 08/28/24 12:00 97.2 97.2 Total Intake and Output 08/27/24 08/27/24 08/28/24 15:00 23:00 07:00 Intake Total 112.5 ml 117.46 ml 225 ml Balance 112.5 ml 117.46 ml 225 ml medications Current Medications Medications Dose Ordered Sig/Jeanne Route Start Time Stop Time Status Last Admin Dose Admin Ipratropium [place] 0.5 mg Q6HR NEB 08/25/24 06:00 08/28/24 18:50 0.5 MG Albuterol 2.5 mg Q6HR NEB 08/25/24 06:00 08/28/24 18:50 2.5 MG Vancomycin HCl 0 ml @ 0 mls/hr UD IV 08/25/24 13:45 Acetaminophen 650 mg Q4HP PRN PO 08/25/24 21:00 08/27/24 19:07 650 MG Lorazepam 1 mg Q5MINP PRN IV 08/27/24 12:15 Lorazepam 1 mg ONCE PRN IV 08/27/24 12:30 08/30/24 12:29 Piperacillin Sod/ Tazobactam Sod 100 ml @ 25 mls/hr Q8HR IV 08/27/24 22:00 08/28/24 13:35 25 MLS/HR Pantoprazole Sodium 40 mg DAILY IV 08/29/24 10:00 Hydralazine HCl 10 mg Q6HP PRN IV 08/28/24 14:15 Vancomycin HCl 100 ml @ 100 mls/hr Q8H IV 08/28/24 18:00 08/28/24 17:34 100 MLS/HR Examination Examination General Appearance: Sedated and intubated HEENT: EOMI Respiratory: Clear to auscultation, Normal air movement, on mech vent Cardiovascular: Regular rate, Normal S1, Normal S2 Abdominal: Normal bowel sounds Extremities: No cyanosis, No edema, Normal pulses, No tenderness/swelling Skin: No rashes, No breakdown Neuro: Sedated and intubated laboratory and microbiology Laboratory Tests 08/28/24 04:53 Test 08/28/24 04:53 Range/Units Serum Glucose 108 H 74-106 mg/dL Microbiology Date/Time Source Procedure Growth Status 08/25/24 17:23 Nose MRSA Screen - Final Complete 08/25/24 03:20 Blood Blood Culture - Preliminary NO GROWTH AFTER 72 HOURS OF INCUBATION. Resulted 08/24/24 20:40 Sputum Gram Stain - Final Complete 08/24/24 20:40 Sputum Respiratory Culture - Final Complete Labs and/or images reviewed: Labs reviewed by me, Image(s) reviewed by me Problem List/Assessment/Plan Problem List/Assessment/Plan ASSESSMENT/PLAN Neurology #Sedation -off sedation #?Seizure vs ?psychogenic non epileptic seizures -neurology on board -ativan PRN #Metabolic encephalopathy due to ?sepsis ?post-ictal ?hypertensive encephalopathy -Head CT -MRI head without contrast #Nonspecific tiny 4 mm focus of restricted diffusion in the medial right temporal lobe. -seen on MRI Cardiology #Hypertensive emergency -currently out of emergency range -IV hydralazine PRN Resp #Acute hypoxic Resp failure due to ?aspiration pneumonia -currently on mech vent -IV antibiotics -panculture s/p extubation 08/28/24 #?aspiration pneumonia -IV antibiotics -panculture GI #Mild hepatic steatosis -seen on CT #Pancolonic diverticulosis -seen on CT Hematology #Normocytic/macrocytic Anemia -monitor #Thrombocytopenia likely due to sepsis -monitor Nephrology #Hypokalemia -corrected #Metabolic acidosis with resp alkalosis -monitor ABG in the AM Infectious Disease #Sepsis due to aspiration pneumonia -IV fluids -IV antibiotics -panculture Lines left IJ CVC 08/26/24 Rosario Cath 08/24/24 Drips DVT prophylaxis lovenox was on hold because of decreasing platelet SCDs PUD prophylaxis Protonix Nutrition on hold s/p extubation swallow evaluation bowel regimen will start Colace Critical care time excluding procedures and including CPAP trial and post extubation monitoring 94 minutes Code status discussed with the patient's family >21 min FULL CODE Case discussion with Dr kristan Family at bedside updated about the condition of the patient Plan discussed with: Other My Orders My Orders Orders - BRITNEY MALDONADO Procedure Category Date Status Time Chest Portable XY 08/28/24 Resulted 04:00 Abg W/ Co-Ox RT 08/28/24 Logged 04:00 Pantoprazole PHA 08/29/24 In Process (Protonix) 10:00 Date of Service: Aug 28, 2024 Billing Provider: NANETTE CALZADA MD Common Visit Codes: [id number] CARE 30-74 MIN, [id number] CARE-EACH +30MIN BRITNEY MALDONADO Aug 28, 2024 19:39 NANETTE CALZADA MD Aug 29, 2024 16:27
[2024-08-28] MEDS: hydrALAZINE HCL 20 MG/ML VL IV PRN (20:46)
[2024-08-28] MEDS: MORPHINE SULFATE INJ 2 MG/ml SYRG IV ONE (22:11)
[2024-08-29] VITALS (8 sets, daily range): BP systolic 160; BP diastolic 66; PULSE 76–99; RESP 14–30; TEMP 98.8; O2SAT 90–100
[2024-08-29] MEDS: VANCOMYCIN 750MG KIT 100 ML IV SCH (02:20)
[2024-08-29] MEDS: LORazepam 2MG/ML-1ML VIAL IV ONE (02:39)
--- NOTE | 2024-08-29 04:52 | DVH ---
CHEST RADIOGRAPH Indication: post extubation Technique: Single frontal view of the chest was obtained Comparison: XY CHEST PORTABLE on DOS: 08/28/24 FINDINGS: Lines and Tubes: Left central venous catheter terminates in the superior cavoatrial junction. Lungs: Pulmonary congestion is unchanged. Pleura: No effusion. No pneumothorax. Cardiomediastinal contours: Stable. Bones: No acute osseous abnormality. IMPRESSION: 1. Pulmonary congestion is unchanged.
[2024-08-29 06:43] LABS: Basophils # (auto) 0 10 ^3/uL (0-0.2); Basophils % (auto) 0.5 % (0.0-2.0); Mean Corpuscular Volume 98.9 fL (80.0-100.0)
[2024-08-29 06:46] LABS: Eosinophils # (auto) 0.1 10 ^3/uL (0-0.8); Hematocrit 34.2 % (36.0-46.0); Lymphocytes # (auto) 0.6 10 ^3/uL (0.4-5.4); Lymphocytes % (auto) 8.8 % (10.0-50.0); Mean Corpuscular Hemoglobin 34.7 pg (28.0-32.0); Monocytes # (auto) 0.7 10 ^3/uL (0-1.3); Monocytes % (auto) 10.6 % (0.0-12.0); Neutrophils # (auto) 5.5 10 ^3/uL (1.6-8.6); Neutrophils % (auto) 79.1 % (37.0-80.0); Nucleated Red Blood Cells % 0.1 %; Platelet Count (auto) 144 10^3/uL (140-450); Red Blood Cells 3.46 10^6/uL (4.0-5.20); Red Cell Distribution Width 12.9 % (11.8-14.3); White Blood Cell 6.9 10^3/uL (4.4-10.8)
[2024-08-29 06:49] LABS: Chloride 106 mmol/L (98-107); Sodium 141 mmol/L (136-145)
[2024-08-29 06:50] LABS: Anion Gap 18 (5-15)
[2024-08-29 06:55] LABS: Glucose 77 mg/dL (74-106)
[2024-08-29 06:56] LABS: BUN/Creatinine Ratio 15.4 (10.0-20.0); Blood Urea Nitrogen 10 mg/dL (9-23); Magnesium 1.9 mg/dL (1.6-2.6)
[2024-08-29 07:02] LABS: Calcium 11.1 mg/dL (8.7-10.4); Carbon Dioxide 17 mmol/L (20-31)
[2024-08-29] MEDS: MAGNESIUM SULFATE 1GM/100ML 100 ML IV ONE (10:08)
[2024-08-29] MEDS: POTASSIUM CHL 20MEQ/100ML 100 ML IV SCH (10:11)
[2024-08-29] MEDS: DEXTROSE (50%) 50ML SYRG IV ONE (10:25)
[2024-08-29] MEDS ORDERED: LORazepam 2MG/ML-1ML VIAL IV PRN (10:45)
[2024-08-29] MEDS ORDERED: VANCOMYCIN 750MG KIT 100 ML IV SCH (10:45)
[2024-08-29] MEDS: PANTOPRAZOLE 40 MG/10 ML VIAL INJ IV SCH (10:51)
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
[2024-08-29] MEDS: MORPHINE SULFATE INJ 2 MG/ml SYRG ONE (11:19)
[2024-08-29 11:38] LABS: Triglycerides 97 mg/dL (< 150)
[2024-08-29 11:40] LABS: HDL Cholesterol 52 mg/dL (40-59)
[2024-08-29 11:41] LABS: Cholesterol 217 mg/dL (< 200); LDL Cholesterol 157 mg/dL (< 100)
--- NOTE | 2024-08-29 12:13 | DVH ---
CAROTID ARTERIAL DOPPLER CLINICAL HISTORY: cva TECHNIQUE: Doppler study of right carotid/vertebral arteries were performed. Comparison: None FINDINGS: The left carotid and vertebral arteries were not evaluated on the current study secondary to left-stephen ed PICC line obstructing evaluation The right common carotid, external and internal carotid arteries appear patent without hemodynamicall y significant stenosis. There is no significant flow limiting plaque formation identified.The spectr al wave forms and peak systolic velocities are within normal limits. Antegrade flow is present within the vertebral arteries with appropriate velocities and waveforms. Right ICA/CCA PSV ratio = 1.4. IMPRESSION: 1. No hemodynamically significant stenosis within the right carotid arteries. 2. The left carotid and vertebral arteries were not evaluated on the current ultrasound study. HS:Y
[2024-08-29] MEDS: BACLOFEN 10 MG TAB PO SCH (17:36)
[2024-08-29] MEDS: MORPHINE SULFATE INJ 2 MG/ml SYRG IV PRN (20:44)
[2024-08-29] MEDS: diazePAM 5 MG TAB PO PRN (20:46)
--- NOTE | 2024-08-29 22:33 | DVHPNRES ---
Progress Note Date Seen: Aug 29, 2024 Resident Creating Document: BRITNEY MALDONADO RESIDENT Medical Necessity Reason Pt with a Central, PICC or Fol: Yes The following are medically ne: Central Line, Rosario Catheter Subjective Review of Systems pt seen and examined at bedside extubated yesterday started on diet as per hilda, had periods of hallucinations and confusion Objective vital signs Vital Sign Date Time Temp Pulse Resp B/P (MAP) Pulse Ox O2 Delivery O2 Flow Rate FiO2 08/29/24 21:41 175/98 08/29/24 21:15 14 95 08/29/24 19:47 94 Nasal Cannula* 3 32 08/29/24 08:00 98.1 98.1 Total Intake and Output 08/28/24 08/28/24 08/29/24 15:00 23:00 07:00 Intake Total 200 ml 285 ml 175 ml Output Total 3400 ml 4100 ml 540 ml Balance -3200 ml -3815 ml -365 ml medications Current Medications Medications Dose Ordered Sig/Jeanne Route Start Time Stop Time Status Last Admin Dose Admin Ipratropium Marion 0.5 mg Q6HR NEB 08/25/24 06:00 08/29/24 18:22 0.5 MG Albuterol 2.5 mg Q6HR NEB 08/25/24 06:00 08/29/24 18:22 2.5 MG Acetaminophen 650 mg Q4HP PRN PO 08/25/24 21:00 08/27/24 19:07 650 MG Lorazepam 1 mg Q5MINP PRN IV 08/27/24 12:15 Piperacillin Sod/ Tazobactam Sod 100 ml @ 25 mls/hr Q8HR IV 08/27/24 22:00 08/29/24 13:30 25 MLS/HR Pantoprazole Sodium 40 mg DAILY IV 08/29/24 10:00 08/29/24 10:51 40 MG Hydralazine HCl 10 mg Q6HP PRN IV 08/28/24 14:15 08/29/24 21:41 10 MG Lorazepam 1 mg ONCE PRN IV 08/29/24 10:45 09/01/24 08:51 Morphine Sulfate 2 mg Q6HPRN PRN IV 08/29/24 11:15 08/29/24 20:44 2 MG Aspirin 81 mg DAILY PO 08/30/24 10:00 Atorvastatin Calcium 20 mg HS PO 08/29/24 22:00 Baclofen 10 mg Q8HR PO 08/29/24 17:30 08/29/24 17:36 10 MG Diazepam 5 mg Q6HP PRN PO 08/29/24 17:30 08/29/24 20:46 5 MG Examination Examination General Appearance: Mildly confused HEENT: EOMI Respiratory: Clear to auscultation, Normal air movement Cardiovascular: Regular rate, Normal S1, Normal S2 Abdominal: Normal bowel sounds Extremities: No cyanosis, No edema, Normal pulses, No tenderness/swelling Skin: No rashes, No breakdown Neuro: Normal speech and tone laboratory and microbiology Laboratory Tests 08/29/24 06:14 Test 08/29/24 06:14 Range/Units Serum Glucose 77 74-106 mg/dL Microbiology Date/Time Source Procedure Growth Status 08/25/24 17:23 Nose MRSA Screen - Final Complete 08/25/24 03:20 Blood Blood Culture - Preliminary NO GROWTH AFTER 72 HOURS OF INCUBATION. Resulted 08/24/24 20:40 Sputum Gram Stain - Final Complete 08/24/24 20:40 Sputum Respiratory Culture - Final Complete Labs and/or images reviewed: Labs reviewed by me, Image(s) reviewed by me Problem List/Assessment/Plan Problem List/Assessment/Plan ASSESSMENT/PLAN Neurology #Sedation -off sedation #?Seizure vs ?psychogenic non epileptic seizures -neurology on board -ativan PRN #Metabolic encephalopathy due to ?sepsis ?post-ictal ?hypertensive encephalopathy ?post-extubation -Head CT -MRI head without contrast #Nonspecific tiny 4 mm focus of restricted diffusion in the medial right temporal lobe. -seen on MRI Cardiology #Hypertensive emergency -currently out of emergency range -IV hydralazine PRN Resp #Acute hypoxic Resp failure due to ?aspiration pneumonia -currently on [facility] vent -IV antibiotics -panculture s/p extubation 08/28/24 #?aspiration pneumonia -IV antibiotics -panculture GI #Mild hepatic steatosis -seen on CT #Pancolonic diverticulosis -seen on CT Hematology #Normocytic/macrocytic Anemia -monitor #Thrombocytopenia likely due to sepsis -monitor Nephrology #Hypokalemia -corrected #Metabolic acidosis with resp alkalosis -monitor ABG in the AM Infectious Disease #Sepsis due to aspiration pneumonia -IV fluids -IV antibiotics -panculture Lines left IJ CVC 08/26/24 Rosario Cath 08/24/24 Drips DVT prophylaxis lovenox was on hold because of decreasing platelet SCDs PUD prophylaxis Protonix Nutrition clear liquid diet bowel regimen off vent Critical care time excluding procedures and including CPAP trial and post extubation monitoring 81 minutes Code status discussed with the patient's family >21 min FULL CODE Case discussion with Dr calzada Family at bedside updated about the condition of the patient Plan discussed with: Patient, Other My Orders My Orders Orders - BRITNEY MALDONADO Procedure Category Date Status Time Cover Wound With Foam MANE 08/29/24 In Process Dressing 16:51 Apply Z-Guard MANE 08/29/24 In Process 16:51 Foam Cradle To ORDERS 08/29/24 Transmitted Bilateral Feet 16:51 * Dietary Consult CONS 08/29/24 Transmitted 16:53 Order Specialty MANE 08/29/24 In Process Mattress 19:11 Transfer Orders XFER 08/29/24 Transmitted 21:13 Calcium LAB 08/30/24 Verified 04:00 Basic Metabolic Panel LAB 08/30/24 Verified 04:00 Magnesium LAB 08/30/24 Verified 04:00 Date of Service: Aug 29, 2024 Billing Provider: NANETTE CALZADA MD Common Visit Codes: 93441-[id number] CARE 30-74 MIN, [id number] CARE-EACH +30MIN BRITNEY MALDONADO Aug 29, 2024 22:33 NANETTE CALZADA MD Aug 30, 2024 12:12
[2024-08-29] MEDS: ATORVASTATIN 20 MG TAB PO SCH (23:09)
[2024-08-30] VITALS (11 sets, daily range): BP systolic 152–168; BP diastolic 69–94; PULSE 87–97; RESP 17–20; TEMP 97.4–98.5; O2SAT 93–99
[2024-08-30] MEDS ORDERED: BACL10TA PO (00:34)
[2024-08-30] MEDS ORDERED: DIAZ10TA66 PO (00:35)
[2024-08-30] MEDS: ASPirin 81 mg TAB PO SCH (09:06)
--- NOTE | 2024-08-30 09:54 | DVHSR ---
APPROVED REPORT EXAM: Two-dimensional and M-mode echocardiogram with Doppler and color Doppler. Blood Pressure: 137/73 mmHg INDICATION CVA/TIA: RISK FACTORS Height: 5' 8", Weight: 180 DIMENSIONS LVDd4.1 (3.8-5.7cm)LA (2D)3.5 (1.9-4.0cm)Aortic Root2.6 (2.0-3.7cm) LVDs2.9 (2.5-4.0cm)LA (MM) (1.9-4.0cm)Aortic Cusp Exc1.6 (1.5-2.0cm) EF (%) 57.0 (55-70%)Rt. Atrium3.5 (1.9-4.0cm)Asc. Aorta3.1 cm IVSd1.1 (0.7-1.1cm)RV (D) (1.8-2.4cm) PWd1.0 (0.7-1.1cm) Mitral Valve MitralMitral Stenosis E wave1.00m/sMV Mean GR.mmHg A wave1.20m/sMV Peak GR.mmHg E/A ratio0.82D MVAcm2 Aortic Valve Aortic ValveAortic Stenosis V10.90m/Radha Mean GR.8mmHg V22.10m/Radha Peak GR.18mmHg LVOT Diameter2.0 (1.8-2.4cm)Doppler AVA1.35cm2 Pulmonic Valve V20.90m/s Other Information Quality : Technically LimitedRhythm : Technically limited study due to pt ALOC. Conclusion Technically good study. Sinus rhythm. Concentric LVH. Mild aortic sclerosis. Mitral tricuspid and pulmonic or structurally normal. EF of 60% with normal RV function. Dopplers unremarkable. No pericardial effusion masses or vegetations discernible.
[2024-08-30 10:11] LABS: Potassium 3.6 mmol/L (3.5-5.1); Sodium 141 mmol/L (136-145)
[2024-08-30 10:12] LABS: Anion Gap 16 (5-15)
[2024-08-30 10:17] LABS: BUN/Creatinine Ratio 19.4 (10.0-20.0); Blood Urea Nitrogen 12 mg/dL (9-23); Glucose 95 mg/dL (74-106)
[2024-08-30 10:25] LABS: Carbon Dioxide 17 mmol/L (20-31); Chloride 108 mmol/L (98-107)
--- NOTE | 2024-08-30 19:02 | DVHPNRES ---
Progress Note Date Seen: Aug 30, 2024 Resident Creating Document: BRITNEY MALDONADO RESIDENT Medical Necessity Reason Pt with a Central, PICC or Fol: Yes The following are medically ne: Central Line, Castle Catheter Subjective Review of Systems pt seen and examined at bedside mentions of no new complaints as per son in law, and daugher, she is getting fluctuation in the cognition pt had small amount of hematuria , that was likely because she pulled the castle later castle was discontinued Family at bedside updated about the condition of the patient and decided for full code ROS Could not be done as patient is confused Objective vital signs Vital Sign Date Time Temp Pulse Resp B/P (MAP) Pulse Ox O2 Delivery O2 Flow Rate FiO2 08/30/24 17:00 97 20 152/69 (96) 98 08/30/24 09:00 97.4 97.4 08/30/24 08:00 Room Air* 0 21 Total Intake and Output 08/29/24 08/29/24 08/30/24 15:00 23:00 07:00 Intake Total 500 ml 100 ml 400 ml Output Total 600 ml 400 ml Balance 500 ml -500 ml 0 ml medications Current Medications Medications Dose Ordered Sig/Jeanne Route Start Time Stop Time Status Last Admin Dose Admin Acetaminophen 650 mg Q4HP PRN PO 08/25/24 21:00 08/30/24 17:43 650 MG Lorazepam 1 mg Q5MINP PRN IV 08/27/24 12:15 Pantoprazole Sodium 40 mg DAILY IV 08/29/24 10:00 08/29/24 10:51 40 MG Hydralazine HCl 10 mg Q6HP PRN IV 08/28/24 14:15 08/30/24 14:24 10 MG Lorazepam 1 mg ONCE PRN IV 08/29/24 10:45 09/01/24 08:51 Morphine Sulfate 2 mg Q6HPRN PRN IV 08/29/24 11:15 08/29/24 20:44 2 MG Aspirin 81 mg DAILY PO 08/30/24 10:00 Atorvastatin Calcium 20 mg HS PO 08/29/24 22:00 08/29/24 23:09 20 MG Baclofen 10 mg Q8HR PO 08/29/24 17:30 08/29/24 17:36 10 MG Amoxicillin/ Clavulanate Potassium 875 mg Q12HR PO 08/30/24 22:00 Melatonin 5 mg HS PRN PO 08/30/24 18:00 Examination Examination General Appearance: Mildly confused HEENT: EOMI Respiratory: Clear to auscultation, Normal air movement Cardiovascular: Regular rate, Normal S1, Normal S2 Abdominal: Normal bowel sounds Extremities: No cyanosis, No edema, Normal pulses, No tenderness/swelling Skin: No rashes, No breakdown Neuro: Normal speech and tone laboratory and microbiology Laboratory Tests 08/30/24 09:50 08/29/24 06:14 Test 08/30/24 09:50 Range/Units Serum Glucose 95 74-106 mg/dL Microbiology Date/Time Source Procedure Growth Status 08/25/24 17:23 Nose MRSA Screen - Final Complete 08/25/24 03:20 Blood Blood Culture - Final NO GROWTH AFTER 5 DAYS OF INCUBATION. Complete 08/24/24 20:40 Sputum Gram Stain - Final Complete 08/24/24 20:40 Sputum Respiratory Culture - Final Complete Labs and/or images reviewed: Labs reviewed by me, Image(s) reviewed by me Problem List/Assessment/Plan Problem List/Assessment/Plan ASSESSMENT/PLAN Neurology #Sedation -off sedation #?Seizure vs ?psychogenic non epileptic seizures -neurology on board -ativan PRN #Metabolic encephalopathy due to ?sepsis ?post-ictal ?hypertensive encephalopathy ?post-extubation -Head CT -MRI head without contrast Discontinue diazepam started melatonin for insomnia #Nonspecific tiny 4 mm focus of restricted diffusion in the medial right temporal lobe. -seen on MRI Cardiology #Hypertensive emergency -currently out of emergency range -IV hydralazine PRN Resp #Acute hypoxic Resp failure due to ?aspiration pneumonia -currently on [facility] vent -IV antibiotics -panculture s/p extubation 08/28/24 #?aspiration pneumonia -IV antibiotics -panculture GI #Mild hepatic steatosis -seen on CT #Pancolonic diverticulosis -seen on CT Hematology #Normocytic/macrocytic Anemia -monitor #Thrombocytopenia likely due to sepsis -monitor Nephrology #Hypokalemia -corrected #Metabolic acidosis with resp alkalosis -monitor ABG in the AM Infectious Disease #Sepsis due to aspiration pneumonia -IV fluids -IV antibiotics -panculture Urology #mild hematuria DC castle Lines left IJ CVC 08/26/24, discontinued Castle Cath 08/24/24, DC castle Drips DVT prophylaxis lovenox was on hold because of decreasing platelet SCDs PUD prophylaxis Protonix Nutrition clear liquid diet bowel regimen off vent pt was downgraded to telemetry Code status discussed with the patient's family >21 min FULL CODE Case discussion with Dr calzada Family at bedside updated about the condition of the patient Plan discussed with: Other My Orders My Orders Orders - BRITNEY MALDONADO Procedure Category Date Status Time Order Specialty MANE 08/29/24 In Process Mattress 19:11 Transfer Orders XFER 08/29/24 Transmitted 21:13 Full Code MANE 08/30/24 In Process 17:36 Melatonin (Melatonin) PHA 08/30/24 In Process 18:00 Dietary Evaluation Review Comments: Encourage and monitor PO intake. Pt state that she had a little discomfort at her throat, agreed to stay on the pureed diet until her appetite improves. Expected Outcomes/Goals: Advance to low fat low cholesterol diet, texture as tolererated. Date of Service: Aug 30, 2024 Billing Provider: NANETTE CALZADA MD Common Visit Codes: [id number] INP/OBS CARE(HIGH) Secondary Visit Codes: [id number] CARE PLAN 30 MINUTES BRITNEY MALDONADO RESIDENT Aug 30, 2024 19:01 NANETTE CALZADA MD Sep 02, 2024 13:10
[2024-08-30] MEDS: AMOXICILLIN/CLAVUL 875 MG TAB PO SCH (21:52)
[2024-08-30] MEDS: MELATONIN 5 MG TAB PO PRN (23:24)
[2024-08-30] MEDS: ATORVASTATIN 20 MG TAB PO SCH (23:30)
[2024-08-30] MEDS ORDERED: HALOPERIDOL LACTATE 5 MG/ML INJ VIAL IM PRN (23:30)
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
[2024-08-31] VITALS (7 sets, daily range): BP systolic 142–191; BP diastolic 78–102; PULSE 88–99; RESP 18–20; TEMP 97.6–98.4; O2SAT 93–95
[2024-08-31] MEDS: CLOPIDOGREL BISULFATE 75 MG TAB PO SCH (02:34)
[2024-08-31 11:31] LABS: Basophils # (auto) 0 10 ^3/uL (0-0.2); Eosinophils # (auto) 0.1 10 ^3/uL (0-0.8); Eosinophils % (auto) 1.5 % (0.0-7.0); Hemoglobin 12.4 g/dL (12.2-16.2); Lymphocytes # (auto) 0.8 10 ^3/uL (0.4-5.4); Monocytes # (auto) 0.7 10 ^3/uL (0-1.3); Neutrophils # (auto) 3.7 10 ^3/uL (1.6-8.6); White Blood Cell 5.3 10^3/uL (4.4-10.8)
[2024-08-31 11:33] LABS: Basophils % (auto) 0.5 % (0.0-2.0); Hematocrit 36.3 % (36.0-46.0); Lymphocytes % (auto) 14.7 % (10.0-50.0); Mean Corpuscular Hgb Conc. 34.2 g/dL (32.0-36.0); Mean Corpuscular Volume 99.4 fL (80.0-100.0); Neutrophils % (auto) 69.3 % (37.0-80.0); Platelet Count (auto) 176 10^3/uL (140-450); Red Blood Cells 3.65 10^6/uL (4.0-5.20); Red Cell Distribution Width 13.4 % (11.8-14.3)
[2024-08-31 11:51] LABS: Sodium 140 mmol/L (136-145)
[2024-08-31 11:52] LABS: Anion Gap 14 (5-15)
[2024-08-31 11:57] LABS: BUN/Creatinine Ratio 18.5 (10.0-20.0); Blood Urea Nitrogen 12 mg/dL (9-23); Glucose 98 mg/dL (74-106)
[2024-08-31 12:09] LABS: Calcium 10.8 mg/dL (8.7-10.4); Carbon Dioxide 18 mmol/L (20-31); Chloride 108 mmol/L (98-107); Potassium 3.1 mmol/L (3.5-5.1)
[2024-08-31] MEDS: POTASSIUM EFFERVESENT TAB 25 MEQ PO ONE (15:02)
--- NOTE | 2024-08-31 19:05 | DVHPNRES ---
Progress Note Date Seen: Aug 31, 2024 Resident Creating Document: BRITNEY MALDONADO RESIDENT Medical Necessity Reason Pt with a Central, PICC or Fol: Yes The following are medically ne: Central Line, Castle Catheter Subjective Review of Systems pt seen and examined at bedside she is more alert and oriented compared to yesterday pt had EEG done and awaiting results Family at bedside explained about the condition of the patient Objective vital signs Vital Sign Date Time Temp Pulse Resp B/P (MAP) Pulse Ox O2 Delivery O2 Flow Rate FiO2 08/31/24 17:00 98.4 88 18 145/78 (100) 95 98.4 08/31/24 08:00 Room Air* 0 21 Total Intake and Output 08/30/24 08/30/24 08/31/24 15:00 23:00 07:00 Intake Total 100 ml 120 ml 240 ml Balance 100 ml 120 ml 240 ml medications Current Medications Medications Dose Ordered Sig/Jeanne Route Start Time Stop Time Status Last Admin Dose Admin Acetaminophen 650 mg Q4HP PRN PO 08/25/24 21:00 08/30/24 17:43 650 MG Lorazepam 1 mg Q5MINP PRN IV 08/27/24 12:15 Pantoprazole Sodium 40 mg DAILY IV 08/29/24 10:00 08/31/24 10:45 40 MG Hydralazine HCl 10 mg Q6HP PRN IV 08/28/24 14:15 08/30/24 21:59 10 MG Lorazepam 1 mg ONCE PRN IV 08/29/24 10:45 09/01/24 08:51 Morphine Sulfate 2 mg Q6HPRN PRN IV 08/29/24 11:15 08/31/24 02:41 2 MG Aspirin 81 mg DAILY PO 08/30/24 10:00 08/31/24 10:44 81 MG Baclofen 10 mg Q8HR PO 08/29/24 17:30 08/31/24 14:55 10 MG Amoxicillin/ Clavulanate Potassium 875 mg Q12HR PO 08/30/24 22:00 08/31/24 10:44 875 MG Melatonin 5 mg HS PRN PO 08/30/24 18:00 08/30/24 23:24 5 MG Atorvastatin Calcium 80 mg HS PO 08/30/24 23:30 Clopidogrel Bisulfate 75 mg DAILY PO 08/30/24 23:40 09/20/24 23:00 08/31/24 10:44 75 MG Haloperidol Lactate 2.5 mg Q8HP PRN IM 08/30/24 23:30 Examination Examination General Appearance: alert and oriented X3 HEENT: EOMI Respiratory: Clear to auscultation, Normal air movement Cardiovascular: Regular rate, Normal S1, Normal S2 Abdominal: Normal bowel sounds Extremities: No cyanosis, No edema, Normal pulses, No tenderness/swelling Skin: No rashes, No breakdown Neuro: Normal speech and tone laboratory and microbiology Laboratory Tests 08/31/24 10:18 Test 08/31/24 10:18 Range/Units Serum Glucose 98 74-106 mg/dL Microbiology Date/Time Source Procedure Growth Status 08/25/24 17:23 Nose MRSA Screen - Final Complete 08/25/24 03:20 Blood Blood Culture - Final NO GROWTH AFTER 5 DAYS OF INCUBATION. Complete 08/24/24 20:40 Sputum Gram Stain - Final Complete 08/24/24 20:40 Sputum Respiratory Culture - Final Complete Labs and/or images reviewed: Labs reviewed by me, Image(s) reviewed by me Problem List/Assessment/Plan Problem List/Assessment/Plan ASSESSMENT/PLAN Neurology #Sedation -off sedation #?Seizure vs ?psychogenic non epileptic seizures -neurology on board -ativan PRN EEG done, AWAITING results #Metabolic encephalopathy due to ?sepsis ?post-ictal ?hypertensive encephalopathy ?post-extubation -Head CT -MRI head without contrast Discontinue diazepam started melatonin for insomnia #Nonspecific tiny 4 mm focus of restricted diffusion in the medial right temporal lobe. -seen on MRI Cardiology #Hypertensive emergency -currently out of emergency range -IV hydralazine PRN Resp #Acute hypoxic Resp failure due to ?aspiration pneumonia -currently on [facility] vent -IV antibiotics -panculture s/p extubation 08/28/24 #?aspiration pneumonia -IV antibiotics -panculture GI #Mild hepatic steatosis -seen on CT #Pancolonic diverticulosis -seen on CT Hematology #Normocytic/macrocytic Anemia -monitor #Thrombocytopenia likely due to sepsis -monitor Nephrology #Hypokalemia -corrected #Metabolic acidosis with resp alkalosis -monitor ABG in the AM Infectious Disease #Sepsis due to aspiration pneumonia -IV fluids -IV antibiotics -panculture Urology #mild hematuria DC castle Lines left IJ CVC 08/26/24, discontinued Castle Cath 08/24/24, DC castle Drips DVT prophylaxis lovenox was on hold because of decreasing platelet SCDs PUD prophylaxis Protonix Nutrition clear liquid diet bowel regimen off vent pt was downgraded to telemetry Code status discussed with the patient's family >21 min FULL CODE Case discussion with Dr Ware Physical therapy evaluation ordered EEG results awaiting DC planning within 24-48 hours Family at bedside updated about the condition of the patient Plan discussed with: Other My Orders My Orders Orders - BRITNEY MALDONADO RESIDENT Procedure Category Date Status Time Advance Diet As MANE 08/31/24 In Process Tolerated 14:33 Dietary Evaluation Review Comments: Encourage and monitor PO intake. Pt state that she had a little discomfort at her throat, agreed to stay on the pureed diet until her appetite improves. Expected Outcomes/Goals: Advance to low fat low cholesterol diet, texture as tolererated. BRITNEY MALDONADO RESIDENT Aug 31, 2024 19:05
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
--- NOTE | 2024-08-31 22:49 | DVHEEG2 ---
Neurology EEG Procedural Note Procedural Note EXAM DATE: 08/31/2024 REFERRING DOCTOR: Dr. Mike TECHNIQUE: Eighteen channels of EEG, 2 channels of EOG, and 1 channel of EKG were recorded using the International 10/20 system. CLINICAL DATA: The patient was referred for an EEG evaluation for the evidence of seizure disorder. MEDICATIONS: See the chart BACKGROUND ACTIVITY: While the patient was awake, the background activity consisted of well regulated 8-9 Hz rhythmic waveforms, symmetrically distributed over both posterior quadrants and was reactive to eye opening. ACTIVATION: Hyperventilation: Not done Photic Stimulation: Not done Sleep: Noticed IMPRESSION: This is a normal EEG. No focal, lateralized, or epileptiform features are noted. If clinically indicated to rule out a seizure disorder, recommend repeat EEG with sleep deprivation. The EKG channel showed a regular heart rate of 90/min[place] [address] BAL MIKE MD Aug 31, 2024 22:49
--- NOTE | 2024-08-31 23:03 | DVHTSRES ---
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 Patient had been having spasms of abdominal and chest wall with a rhythmic contractions undiagnosed at the time of admission for which patient takes baclofen and Valium as needed. In the ER patient got altered and was intubated. Head CT was done which revealed no acute intracranial abnormality. Patient was initially in hypertensive emergency range, which resolved later. Patient was started on IV antibiotics for possible aspiration pneumonia and pancultures were collected. CT abdomen pelvis chest revealed mild hepatic steatosis, pancolonic diverticulosis. Later patient was extubated on 08/28/2024. Post extubation patient developed confusion likely post extubation delirium. Diazepam was discontinued and later patient had resolution of delirium. Neurologist was consulted. Patient had MRI done which revealed Nonspecific tiny 4 mm focus of restricted diffusion in the medial right temporal lobe. This may be artifactual or related to postictal changes. Clinical correlation is recommended to assess for possible CVA. Patient had EEG done w the [facility] at the time of transfer, was not read by the neurologist. At the time of transfer, patient is currently on room air, is alert and oriented. Physical therapy was consulted for evaluation. Care will be transferred to the upcoming ICU team, Dr Kauffman, Dr Ocampo and Dr Flip MALDONADO,BRITNEY RESIDENT Aug 31, 2024 23:03
[2024-09-01] VITALS (7 sets, daily range): BP systolic 106–173; BP diastolic 65–97; PULSE 73–106; RESP 17–20; TEMP 98.1–98.7; O2SAT 93–96
--- NOTE | 2024-09-01 05:39 | DVH ---
CHEST RADIOGRAPH Indication: mech vent Technique: Single frontal view of the chest was obtained Comparison: XY CHEST PORTABLE on DOS: 08/29/24, XY CHEST PORTABLE on DOS: 08/28/24, XY CHEST PORTABLE on DOS: 08/28/24 IMPRESSION: Heart is normal in size. The lungs appear clear without focal airspace opacity, effusion, or pneumot horax.
[2024-09-01 07:36] LABS: Basophils # (auto) 0 10 ^3/uL (0-0.2); Eosinophils # (auto) 0.1 10 ^3/uL (0-0.8); Hemoglobin 12.8 g/dL (12.2-16.2); Lymphocytes # (auto) 0.8 10 ^3/uL (0.4-5.4); Monocytes # (auto) 0.7 10 ^3/uL (0-1.3); Nucleated Red Blood Cells % 0.1 %; White Blood Cell 4.8 10^3/uL (4.4-10.8)
[2024-09-01 07:37] LABS: Basophils % (auto) 0.6 % (0.0-2.0); Eosinophils % (auto) 1.2 % (0.0-7.0); Hematocrit 37.2 % (36.0-46.0); Lymphocytes % (auto) 15.8 % (10.0-50.0); Mean Corpuscular Hemoglobin 34.2 pg (28.0-32.0); Mean Corpuscular Hgb Conc. 34.4 g/dL (32.0-36.0); Mean Corpuscular Volume 99.2 fL (80.0-100.0); Monocytes % (auto) 14.3 % (0.0-12.0); Neutrophils # (auto) 3.2 10 ^3/uL (1.6-8.6); Neutrophils % (auto) 68.1 % (37.0-80.0); Platelet Count (auto) 177 10^3/uL (140-450); Red Blood Cells 3.75 10^6/uL (4.0-5.20); Red Cell Distribution Width 13.1 % (11.8-14.3)
[2024-09-01 07:53] LABS: Chloride 107 mmol/L (98-107); Sodium 139 mmol/L (136-145)
[2024-09-01 07:54] LABS: Anion Gap 11 (5-15); Carbon Dioxide 21 mmol/L (20-31)
[2024-09-01 07:57] LABS: Calcium 10.5 mg/dL (8.7-10.4); Potassium 3.5 mmol/L (3.5-5.1)
[2024-09-01 07:59] LABS: BUN/Creatinine Ratio 15.8 (10.0-20.0); Glucose 103 mg/dL (74-106)
[2024-09-01 08:00] LABS: Magnesium 1.9 mg/dL (1.6-2.6)
[2024-09-01 08:09] LABS: Blood Urea Nitrogen 9 mg/dL (9-23)
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
--- NOTE | 2024-09-01 19:16 | DVHPN2 ---
Subjective in bed resting Reviewed: H&P Changes from previous H/P or p: No Changes General: Per HPI Objective Vitals Vital Signs Date Time Temp Pulse Resp B/P (MAP) Pulse Ox O2 Delivery O2 Flow Rate FiO2 09/01/24 16:00 98.2 95 18 161/97 (118) 96 98.2 09/01/24 08:05 Room Air* 0 21 Intake/Output Intake and Output 09/01/24 05:00 Intake Total 1050 ml Output Total 3 ml Balance 1047 ml Intake Oral 1050 ml Stool Total 3 ml # Voids 2 # Bowel Movements 1 General Appearance: Alert HEENT: Atraumatic Lungs: Clear to auscultation Cardiovascular: Regular rate, Normal S1, Normal S2 Abdomen: Normal bowel sounds Medications Current Medications Medications Dose Ordered Sig/Jeanne Route Start Time Stop Time Status Last Admin Dose Admin Acetaminophen 650 mg Q4HP PRN PO 08/25/24 21:00 08/30/24 17:43 650 MG Lorazepam 1 mg Q5MINP PRN IV 08/27/24 12:15 Pantoprazole Sodium 40 mg DAILY IV 08/29/24 10:00 09/01/24 10:36 40 MG Hydralazine HCl 10 mg Q6HP PRN IV 08/28/24 14:15 08/31/24 21:37 10 MG Morphine Sulfate 2 mg Q6HPRN PRN IV 08/29/24 11:15 08/31/24 02:41 2 MG Aspirin 81 mg DAILY PO 08/30/24 10:00 09/01/24 10:37 81 MG Baclofen 10 mg Q8HR PO 08/29/24 17:30 09/01/24 13:59 10 MG Amoxicillin/ Clavulanate Potassium 875 mg Q12HR PO 08/30/24 22:00 09/01/24 10:36 875 MG Melatonin 5 mg HS PRN PO 08/30/24 18:00 08/30/24 23:24 5 MG Atorvastatin Calcium 80 mg HS PO 08/30/24 23:30 08/31/24 21:22 80 MG Clopidogrel Bisulfate 75 mg DAILY PO 08/30/24 23:40 09/20/24 23:00 09/01/24 10:37 75 MG Haloperidol Lactate 2.5 mg Q8HP PRN IM 08/30/24 23:30 Laboratory Results Laboratory Tests 09/01/24 07:00 Chemistry Test 09/01/24 07:00 Calcium Level 10.5 mg/dL (8.7-10.4) H Magnesium Level 1.9 mg/dL (1.6-2.6) Urinalysis Test 08/24/24 23:44 Urine Color Yellow (Yellow) Urine Clarity Turbid (Clear) H Urine pH 5.5 (5.0-9.0) Urine Specific [place] 1.023 (1.001-1.035) Urine Protein Trace (Negative) H Urine Ketones Negative (Negative) Urine Blood Negative /uL (Negative) Urine Nitrite Negative (Negative) Urine Bilirubin Negative (Negative) Urine Urobilinogen Normal mg/dL (Negative) Urine Leukocyte Esterase Negative /uL (Negative) Urine RBC 1 /hpf (0 - 4) Urine Microscopic WBC 1 /HPF (0-5) Urine Squamous Epithelial Cells Few /hpf (<5) Urine Bacteria None seen /hpf (None Seen) Urine Hyaline Casts Few /lpf (0 - 2) Urine Mucus Few (None Seen) Urine Glucose Normal mg/dL (Normal) Microbiology Microbiology Date/Time Source Procedure Growth Status 08/25/24 17:23 Nose MRSA Screen - Final Complete 08/25/24 03:20 Blood Blood Culture - Final NO GROWTH AFTER 5 DAYS OF INCUBATION. Complete 08/24/24 20:40 Sputum Gram Stain - Final Complete 08/24/24 20:40 Sputum Respiratory Culture - Final Complete Assessment/Plan Assessment/Plan Neurology #Sedation -off sedation #?Seizure vs ?psychogenic non epileptic seizures -neurology on board -ativan PRN EEG done, AWAITING results #Metabolic encephalopathy due to ?sepsis ?post-ictal ?hypertensive encephalopathy ?post-extubation -Head CT -MRI head without contrast Discontinue diazepam started melatonin for insomnia #Nonspecific tiny 4 mm focus of restricted diffusion in the medial right temporal lobe. -seen on MRI Cardiology #Hypertensive emergency -currently out of emergency range -IV hydralazine PRN Resp #Acute hypoxic Resp failure due to ?aspiration pneumonia -currently on [facility] vent -IV antibiotics -panculture s/p extubation 08/28/24 #?aspiration pneumonia -IV antibiotics -panculture GI #Mild hepatic steatosis -seen on CT #Pancolonic diverticulosis -seen on CT Hematology #Normocytic/macrocytic Anemia -monitor #Thrombocytopenia likely due to sepsis -monitor Nephrology #Hypokalemia -corrected #Metabolic acidosis with resp alkalosis -monitor ABG in the AM Infectious Disease #Sepsis due to aspiration pneumonia -IV fluids -IV antibiotics -panculture Urology #mild hematuria DC castle Lines left IJ CVC 08/26/24, discontinued Castle Cath 08/24/24, DC castle Drips DVT prophylaxis lovenox was on hold because of decreasing platelet SCDs PUD prophylaxis Protonix Nutrition clear liquid diet bowel regimen off vent pt was downgraded to telemetry Code status discussed with the patient's family >21 min FULL CODE Case discussion with Dr Ware Physical therapy evaluation ordered EEG results awaiting DC planning within 24-48 hours Plan discussed with: Patient Date of Service: Sep 01, 2024 Billing Provider: SAULO SCHWAB MD Common Visit Codes: [id number] INP/OBS CARE(HIGH) SAULO SCHWAB MD Sep 01, 2024 19:16
[2024-09-02] VITALS (10 sets, daily range): BP systolic 138–163; BP diastolic 69–84; PULSE 82–94; RESP 16; TEMP 97.8–98.6; O2SAT 95–97
[2024-09-02] MEDS ORDERED: AUG875T PO (11:21)
[2024-09-02] MEDS ORDERED: ASPI-325 PO (11:21)
[2024-09-02] MEDS ORDERED: ATOR20TA50 PO (11:21)
[2024-09-02] MEDS ORDERED: CLOP75TA70 PO (19:57)
--- NOTE | 2024-09-02 20:09 | DVHPN2 ---
Subjective in bed resting Reviewed: H&P Changes from previous H/P or p: No Changes General: Per HPI Objective Vitals Vital Signs Date Time Temp Pulse Resp B/P (MAP) Pulse Ox O2 Delivery O2 Flow Rate FiO2 09/02/24 17:21 82 138/82 (100) 09/02/24 17:00 97.8 16 95 97.8 09/02/24 08:00 Room Air* 0 21 Intake/Output Intake and Output 09/02/24 05:00 Intake Total 1440 ml Balance 1440 ml Intake Oral 1440 ml # Voids 7 # Bowel Movements 2 General Appearance: Alert HEENT: Atraumatic Lungs: Clear to auscultation Cardiovascular: Regular rate, Normal S1, Normal S2 Abdomen: Normal bowel sounds Medications Current Medications Medications Dose Ordered Sig/Jeanne Route Start Time Stop Time Status Last Admin Dose Admin Acetaminophen 650 mg Q4HP PRN PO 08/25/24 21:00 08/30/24 17:43 650 MG Lorazepam 1 mg Q5MINP PRN IV 08/27/24 12:15 Pantoprazole Sodium 40 mg DAILY IV 08/29/24 10:00 09/02/24 11:02 40 MG Hydralazine HCl 10 mg Q6HP PRN IV 08/28/24 14:15 08/31/24 21:37 10 MG Morphine Sulfate 2 mg Q6HPRN PRN IV 08/29/24 11:15 08/31/24 02:41 2 MG Aspirin 81 mg DAILY PO 08/30/24 10:00 09/02/24 11:02 81 MG Baclofen 10 mg Q8HR PO 08/29/24 17:30 09/02/24 13:44 10 MG Amoxicillin/ Clavulanate Potassium 875 mg Q12HR PO 08/30/24 22:00 09/02/24 11:02 875 MG Melatonin 5 mg HS PRN PO 08/30/24 18:00 08/30/24 23:24 5 MG Atorvastatin Calcium 80 mg HS PO 08/30/24 23:30 09/01/24 21:28 80 MG Clopidogrel Bisulfate 75 mg DAILY PO 08/30/24 23:40 09/20/24 23:00 09/01/24 10:37 75 MG Haloperidol Lactate 2.5 mg Q8HP PRN IM 08/30/24 23:30 Laboratory Results Laboratory Tests 09/01/24 07:00 Urinalysis Test 08/24/24 23:44 Urine Color Yellow (Yellow) Urine Clarity Turbid (Clear) H Urine pH 5.5 (5.0-9.0) Urine Specific [place] 1.023 (1.001-1.035) Urine Protein Trace (Negative) H Urine Ketones Negative (Negative) Urine Blood Negative /uL (Negative) Urine Nitrite Negative (Negative) Urine Bilirubin Negative (Negative) Urine Urobilinogen Normal mg/dL (Negative) Urine Leukocyte Esterase Negative /uL (Negative) Urine RBC 1 /hpf (0 - 4) Urine Microscopic WBC 1 /HPF (0-5) Urine Squamous Epithelial Cells Few /hpf (<5) Urine Bacteria None seen /hpf (None Seen) Urine Hyaline Casts Few /lpf (0 - 2) Urine Mucus Few (None Seen) Urine Glucose Normal mg/dL (Normal) Microbiology Microbiology Date/Time Source Procedure Growth Status 08/25/24 17:23 Nose MRSA Screen - Final Complete 08/25/24 03:20 Blood Blood Culture - Final NO GROWTH AFTER 5 DAYS OF INCUBATION. Complete 08/24/24 20:40 Sputum Gram Stain - Final Complete 08/24/24 20:40 Sputum Respiratory Culture - Final Complete Assessment/Plan Assessment/Plan Neurology #Sedation -off sedation #?Seizure vs ?psychogenic non epileptic seizures -neurology on board -ativan PRN EEG done and negative #Metabolic encephalopathy due to ?sepsis ?post-ictal ?hypertensive encephalopathy ?post-extubation -Head CT -MRI WNL Discontinue diazepam started melatonin for insomnia #Nonspecific tiny 4 mm focus of restricted diffusion in the medial right temporal lobe. -seen on MRI Cardiology #Hypertensive emergency -currently out of emergency range -IV hydralazine PRN Resp s/p extubation 08/28/24 GI #Mild hepatic steatosis -seen on CT #Pancolonic diverticulosis -seen on CT Hematology #Normocytic/macrocytic Anemia -monitor #Thrombocytopenia likely due to sepsis -monitor Nephrology #Hypokalemia -corrected #Metabolic acidosis with resp alkalosis -monitor ABG in the AM Infectious Disease #Sepsis due to aspiration pneumonia Can discontinue Urology #mild hematuria DC [place] DVT prophylaxis lovenox was on hold because of decreasing platelet SCDs PUD prophylaxis Protonix Nutrition regular diet Had long discussion with daughter, has been trying to contact Dr Olivia from neurology, they are worried about her spams. I Explained that she has possible old stroke but no seizures or any other organic causes we found. They are upset because nobody has talked to them in the hospital and no answers for her condition. I did tried again to explain her condition and went over MRI, US carotid and EEG findings as well as labs Plan discussed with: Patient, Daughter My Orders Orders - SAULO SCHWAB MD Procedure Category Date Status Time Discharge DISCHARGE 09/02/24 Transmitted 11:21 Mrsa Screen [place] 09/02/24 In Process 17:10 Date of Service: Sep 02, 2024 Billing Provider: SAULO SCHWAB MD Common Visit Codes: [id number] INP/OBS CARE(HIGH) SAULO SCHWAB MD Sep 02, 2024 20:09
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
--- NOTE | 2024-09-11 10:15 | DVHDSRES ---
Discharge Summary Date of Admission Resident Creating Document: BRITNEY MALDONADO Aug 24, 2024 at 23:25 Date of Discharge: Sep 02, 2024 Labs/Diagnostic Data: Laboratory Results Test 09/01/24 07:00 08/30/24 10:49 08/30/24 09:50 08/29/24 06:14 White Blood Count 4.8 10^3/uL (4.4-10.8) Red Blood Count 3.75 10^6/uL (4.0-5.20) Hemoglobin 12.8 g/dL (12.2-16.2) Hematocrit 37.2 % (36.0-46.0) Mean Corpuscular Volume 99.2 fL (80.0-100.0) Mean Corpuscular Hemoglobin 34.2 pg (28.0-32.0) Mean Corpuscular Hemoglobin Concent 34.4 g/dL (32.0-36.0) Red Cell Distribution Width 13.1 % (11.8-14.3) Platelet Count 177 10^3/uL (140-450) Mean Platelet Volume 8.9 fL (6.9-10.8) Neutrophils (%) (Auto) 68.1 % (37.0-80.0) Lymphocytes (%) (Auto) 15.8 % (10.0-50.0) Monocytes (%) (Auto) 14.3 % (0.0-12.0) Eosinophils (%) (Auto) 1.2 % (0.0-7.0) Basophils (%) (Auto) 0.6 % (0.0-2.0) Neutrophils # (Auto) 3.2 10 ^3/uL (1.6-8.6) Lymphocytes # (Auto) 0.8 10 ^3/uL (0.4-5.4) Monocytes # (Auto) 0.7 10 ^3/uL (0-1.3) Eosinophils # (Auto) 0.1 10 ^3/uL (0-0.8) Basophils # (Auto) 0 10 ^3/uL (0-0.2) Nucleated Red Blood Cells 0.1 % Sodium Level 139 mmol/L (136-145) Potassium Level 3.5 mmol/L (3.5-5.1) Chloride Level 107 mmol/L (98-107) Carbon Dioxide Level 21 mmol/L (20-31) Anion Gap 11 (5-15) Blood Urea Nitrogen 9 mg/dL (9-23) Creatinine 0.57 mg/dL (0.550-1.02) Glomerular Filtration Rate Calc 97 mL/min (>90) BUN/Creatinine Ratio 15.8 (10.0-20.0) Serum Glucose 103 mg/dL (74-106) Calcium Level 10.5 mg/dL (8.7-10.4) Magnesium Level 1.9 mg/dL (1.6-2.6) Lactic Acid Level 0.8 mmol/L (0.4-2.0) Beta-Hydroxybutyric Acid 3.539 mmol/L (< 0.4) Parathyroid Hormone (Intact) 37.9 pg/mL (18.4-80.1) Triglycerides Level 97 mg/dL (< 150) Cholesterol Level 217 mg/dL (< 200) LDL Cholesterol 157 mg/dL (< 100) HDL Cholesterol 52 mg/dL (40-59) Test 08/28/24 14:45 08/28/24 06:42 08/28/24 04:53 08/27/24 20:52 Blood Gas Specimen Type Arterial Blood Gas Sample Site Right radial Blood Gas Patient Temperature 37.0 Arterial Blood Date Drawn [id number] Arterial Blood pH 7.406 (7.350-7.450) Arterial Blood Partial Pressure CO2 31.2 mmHg (32.0-45.0) Arterial Blood Partial Pressure O2 88.8 mmHg (83.0-108.0) Arterial Blood HCO3 19.2 mmol/L (21.0-28.0) Arterial Blood Oxygen Saturation 95.9 % (94.0-98.0) Arterial Blood Base Excess -4.7 mmol/L (-2.0-3.0) Arterial Blood Oxyhemoglobin 94.9 % (94.0-98.0) Arterial Blood Carboxyhemoglobin 0.3 % (0.5-1.5) Arterial Blood Methemoglobin 0.7 % (0.0-1.5) Andrea Test Modified Blood Gas Total Hemoglobin 9.90 g/dL (12.0-16.0) Blood Gas Modality Vent - cpap Blood Gas Spontaneous Rate 26 FiO2 % 30.0 Blood Gas Spontaneous Tidal Volume 400 Blood Gas Pressure Support 8 Blood Gas PEEP or CPAP 5.0 Blood Gas Set Respiration Rate 16.0 Blood Gas Tidal Volume 500.0 Prolactin 6.00 ng/mL (2.8-29.2) Vancomycin Level Trough 9.6 ug/mL (5-10) Test 08/26/24 06:20 08/25/24 17:30 08/25/24 03:20 08/24/24 23:44 Total Bilirubin 0.8 mg/dL (0.2-1.0) Aspartate Amino Transferase (AST) 14 U/L (13-40) Alanine Aminotransferase (ALT) 20 U/L (7-40) Alkaline Phosphatase 67 U/L (46-116) Total Protein 5.6 g/dL (5.7-8.2) Albumin 3.8 g/dL (3.2-4.8) Influenza Type A Antigen Negative (Negative) Influenza Type B Antigen Negative (Negative) SARS-CoV-2 Antigen (Rapid) Negative (NEGATIVE) Prothrombin Time 10.5 sec (9.3-11.8) Prothrombin Time INR 0.99 (0.9-1.15) Ammonia 16 umol/L (11-32) Thyroid Stimulating Hormone (TSH) 1.83 uIU/mL (0.55-4.78) Urine Color Yellow (Yellow) Urine Clarity Turbid (Clear) Urine pH 5.5 (5.0-9.0) Urine Specific [place] 1.023 (1.001-1.035) Urine Protein Trace (Negative) Urine Ketones Negative (Negative) Urine Blood Negative /uL (Negative) Urine Nitrite Negative (Negative) Urine Bilirubin Negative (Negative) Urine Urobilinogen Normal mg/dL (Negative) Urine Leukocyte Esterase Negative /uL (Negative) Urine RBC 1 /hpf (0 - 4) Urine Microscopic WBC 1 /HPF (0-5) Urine Squamous Epithelial Cells Few /hpf (<5) Urine Bacteria None seen /hpf (None Seen) Urine Hyaline Casts Few /lpf (0 - 2) Urine Mucus Few (None Seen) Urine Glucose Normal mg/dL (Normal) Urine Opiates Screen Neg (NEGATIVE) Urine Fentanyl Screen Neg (NEGATIVE) Urine Barbiturates Screen Neg (NEGATIVE) Urine Phencyclidine Screen Neg (NEGATIVE) Urine Amphetamines Screen Neg (NEGATIVE) Urine Benzodiazepines Screen Pos (NEGATIVE) Urine Cocaine Screen Neg (NEGATIVE) Urine Cannabinoids Screen Neg (NEGATIVE) Test 08/24/24 22:00 08/24/24 18:01 Blood Gas Critical Value Read Back Yes Blood Gas Notified Whom [place] md Blood Gas Notified Time [id number] Blood Gas Notified By Rochelle nicole rrt D-Dimer, Quantitative 0.74 mg/L FEU (0.0-0.49) Plasma/Serum Blood Alcohol 5.1 mg/dL (<10) Other Laboratory Tests 09/01/24 07:00 Brief Hx & Hospital Course: 69-year-old female with past medical history of hypertension, anxiety and seizure-like activity, with muscle spasms presented in the hospital for complaints of altered level of consciousness. Per family, the patient had episodes of seizure-like activity during which she become stiff and has some jerky limb movement but the patient did not lose consciousness. But patient had visual hallucination and been bed-bound since 2 days and thats why the family decided to bring the patient to the ER. As per ER physician , pt was anxious, crying and in distress, unable to obtain story from patient due to her anxiety. Patient was given Haldol IM as she was becoming delirious. pt was later intubated for ALOC. Patient was also started on the sedatives. Neurology was consulted. Head CT scan did not show any acute intracranial abnormalities. Pt was initially in hypertensive urgency range but later BP retuned to normal range. Added on IV antibiotics for possible aspiration pneumonia. Panculture were ordered. Nonspecific tiny 4 mm focus of restricted diffusion in the medial right temporal lobe was seen on MRI. Hypokalemia was corrected Patient was extubated after CPAP trial and sedation vacation. Post extubation patient had confusional state, which resolved during the hospital stay after cessation of diazepam. Patient was later downgraded to telemetry. family at bedside updated about the condition of the patient. EEG was done which showed normal EEG. Tele psych was consulted by the hospitalist. Patient was discharged by the hospitalist. At the time of discharge, patient had stable vitals. Discharge plan was discussed by the hospitalist and patient was advised to follow up with PCP/neurologist within one week. Patient was discharged on Augmentin, aspirin, atorvastatin and Plavix. Condition at Discharge: Stable Final Diagnosis/Problems List ?Seizure vs ?psychogenic non epileptic seizures Metabolic encephalopathy due to ?sepsis ?post-ictal ?hypertensive encephalopathy ?post-extubation insomnia Nonspecific tiny 4 mm focus of restricted diffusion in the medial right temporal lobe Hypertensive emergency, resolved acute hypoxic resp failure s/p extubation due to ?aspiration pneumonia ?aspiration pneumonia mild hepatic steatosis pancolonic diverticulosis Normocytic/macrocytic Anemia Thrombocytopenia likely due to sepsis Hypokalemia Metabolic acidosis with resp alkalosis Sepsis due to aspiration pneumonia mild hematuria Discharge Disposition: Home Discharge Instruct/Medications Diet: Regular Activity: No Restrictions, As Tolerated Follow Up/Referral: f/u with neurology within 1-2 weeks Discharge Statement: "Patient was advised to return to the ER or call 911 if any headaches, dizziness, shortness of breath, chest pain, abdominal pain, bleeding, fevers, or worsening of medical condition. Patient was counseled about treatment plan, medications, possible side effects, patientverbalized understanding. All questions were answered to the best of my ability. This discharge took greater then 30 minutes in planning, reviewing documentation, counseling the patient, and discussing with other team members." ASSESSMENT ASSESSMENT Assessment Sepsis BRITNEY MALDONADO RESIDENT Sep 11, 2024 10:15
== END 2024-09-02 22:02 | disposition home health service (06) | DRG 871 ==
LOC: ER 17:26 → EDBD 17:26 → OVERFLOW 23:25 → TELE 08-27 00:57 → TELE-WESTW 08-29 21:53
PROVIDERS: ADMIT Internal Medicine Pulmonary Disease; ATTEND Internal Medicine Pulmonary Disease
PROC: 02HV33Z Insertion of Infusion Device into Superior Vena Cava, Percutaneous Approach (ICD-10-PCS; principal; 2024-08-24)
PROC: 0BH17EZ Insertion of Endotracheal Airway into Trachea, Via Natural or Artificial Opening (ICD-10-PCS; 2024-08-24)
PROC: 5A1945Z Respiratory Ventilation, 24-96 Consecutive Hours (ICD-10-PCS; 2024-08-24)
DX: A41.9 Sepsis, unspecified organism (principal); G93.41 Metabolic encephalopathy; I63.9 Cerebral infarction, unspecified; J69.0 Pneumonitis due to inhalation of food and vomit; J96.01 Acute respiratory failure with hypoxia; I16.1 Hypertensive emergency; G25.82 Stiff-man syndrome; E87.4 Mixed disorder of acid-base balance; I67.4 Hypertensive encephalopathy; K76.0 Fatty (change of) liver, not elsewhere classified; K57.30 Diverticulosis of large intestine without perforation or abscess without bleeding; E83.52 Hypercalcemia; E86.0 Dehydration; E87.6 Hypokalemia; F41.9 Anxiety disorder, unspecified; F43.10 Post-traumatic stress disorder, unspecified; G40.401 Other generalized epilepsy and epileptic syndromes, not intractable, with status epilepticus; G70.9 Myoneural disorder, unspecified; F32.A Depression, unspecified; D69.59 Other secondary thrombocytopenia; D53.9 Nutritional anemia, unspecified; G47.00 Insomnia, unspecified; Z74.01 Bed confinement status; Z79.82 Long term (current) use of aspirin; Z79.899 Other long term (current) drug therapy; D69.6 Thrombocytopenia, unspecified
CPT/HCPCS: 31500; 36415; 36556; 36600; 70450; 70551; 71045; 71260; 74177; 80048; 80053; 80061; 80202; 80307; 80320; 81001; 82010; 82140; 82565; 82805; 83605; 83735; 83970; 84132; 84146; 84443; 85025; 85379; 85610; 87040; 87070; 87081; 87205; 87426; 87804; 92610; 93005; 93017; 93306; 93886; 93970; 94002; 94003; 94640; 95819; 97110; 97116; 97163; 97530; 99291; G0378; J0692; J2250; J2470; J2543; J2704; J3480; J7060